=== PATIENT | male | born 1970 | race Caucasian/White ===

== ENCOUNTER 2017-01-08 12:20 | Inpatient (IN) ==
--- NOTE | 2017-01-07 21:18 | Discharge Summary ---
<Veronica Mayorga - Last Filed: 01/07/17 21:14> Date of Encounter: 01/07/17 - Discharge Diagnosis (1) Arthritis of right hip Priority: Primary Status: Acute (2) HTN (hypertension) Priority: Secondary Status: Chronic Qualifiers: Hypertension type: essential hypertension Qualified Code(s): I10 - Essential (primary) hypertension (3) Thyroid disease Priority: Secondary Status: Chronic (4) Tobacco abuse Priority: Secondary Status: Chronic (5) Traumatic brain injury Priority: Secondary Status: Chronic Qualifiers: Encounter type: sequela Loss of consciousness presence/duration: with LOC of unspecified duration Qualified Code(s): S06.9X9S - Unspecified intracranial injury with loss of consciousness of unspecified duration, sequela (6) Depression with anxiety Priority: Secondary Status: Chronic - Discharge Medications Home Medications: Cholecalciferol (Vitamin D3) [Vitamin D3] 50,000 unit PO Q2W 03/04/15 [History] Divalproex Sodium 500 mg PO 0600 03/04/15 [History] Divalproex Sodium [Depakote Sprinkle] 1,000 mg PO 1800 03/04/15 [History] Doxepin [Sinequan] 100 mg PO HS 03/04/15 [History] Haloperidol 2 mg PO DAILY PRN 03/04/15 [History] Trihexyphenidyl HCl 2 mg PO BID 03/04/15 [History] Acetaminophen [Tylenol] 1,000 mg PO Q6HR PRN 06/18/15 [History] Tizanidine HCl [Zanaflex] 4 mg PO BID 11/14/15 [History] ALPRAZolam [Xanax 1 MG Tablet] 1 mg PO BID #2 tablet 01/07/17 [Rx] Aspirin Enteric Coated [Aspirin EC] 325 mg PO DAILY #21 tablet. 01/07/17 [Rx] OxyCODONE Immed Rel [Roxicodone 5 MG] 5 - 10 mg PO Q6HR PRN #40 tablet 01/07/17 [Rx] ALPRAZolam [Xanax 0.5 MG Tablet] 0.5 mg PO BID 01/08/17 [History] Carboxymethylcellulose Sodium [Refresh Tears] 1 - 2 drop BOTH EYES Q4H PRN 01/08 [History] Divalproex Sodium [Depakote Sprinkle] 125 mg PO 1200 01/08/17 [History] Escitalopram [Lexapro] 20 mg PO HS 01/08/17 [History] HYDROcodone/Acet 5/325 mg [[place] 5-325 mg] 1 tab PO BID PRN 01/08/17 [History] Levothyroxine [Synthroid] 75 mcg PO 0630 01/08/17 [History] Loperamide HCl [Anti-Diarrheal] 2 mg PO Q2H PRN 01/08/17 [History] Multivitamin,Stress Formula/Zn [Stress B with Zinc Tablet] 1 each PO DAILY 01/08 [History] Trazodone HCl 25 mg PO HS PRN 01/08/17 [History] hydroCHLOROthiazide [Hydrochlorothiazide] 12.5 mg PO DAILY 01/08/17 [History] Allergies/Adverse Reactions: Allergies quetiapine [From Seroquel] Adverse Reaction (Verified 01/08/17 13:12) Rash PER PATIENT RASH WITH SEROQUEL PER ECF MAR NO KNOWN DRUG ALLERGIES Primary care physician: Kaitlin Pierson - Patient Status Disposition: Transfer Inpatient Rehab Fac Condition: Good - Discharge Instructions Follow Up With: Kaitlin Pierson MD [Primary Care Provider] - - Hospital Course Hospital course: Mr. Garcia is a 46 year old male - Time Spent with Patient Total time spent providing and/or coordinating discharge services: <Jelani Ulloa - Last Filed: 01/10/17 08:32> Date of Encounter: 01/10/17 Time of Encounter: 08:31 - Discharge Diagnosis (1) Arthritis of right hip Priority: Primary Status: Acute (2) HTN (hypertension) Priority: Secondary Status: Chronic Qualifiers: Hypertension type: essential hypertension Qualified Code(s): I10 - Essential (primary) hypertension (3) Thyroid disease Priority: Secondary Status: Chronic (4) Tobacco abuse Priority: Secondary Status: Chronic (5) Traumatic brain injury Priority: Secondary Status: Chronic Qualifiers: Encounter type: sequela Loss of consciousness presence/duration: with LOC of unspecified duration Qualified Code(s): S06.9X9S - Unspecified intracranial injury with loss of consciousness of unspecified duration, sequela (6) Depression with anxiety Priority: Secondary Status: Chronic Primary care physician: Kaitlin Pierson - Patient Status Functional capacity at discharge: uses cane/walker Overall status at discharge: patient is progressing back to baseline - Hospital Course Hospital course: Mr. Garcia is a 46 year old male The patient had an uneventful postoperative course. They received antibiotics and physical therapy and were discharged in stable condition. There will follow -up in the office in 2 weeks. Aspirin DVT prophylaxis - Time Spent with Patient Total time spent providing and/or coordinating discharge services:
--- NOTE | 2017-01-07 21:28 | Physician Discharge Referral ---
ExtendedCare Referral Info Transfer To: [facility] Level of Care: Skilled - Diagnosis (1) Arthritis of right hip Priority: Primary Status: Acute (2) HTN (hypertension) Priority: Secondary Status: Chronic (3) Thyroid disease Priority: Secondary Status: Chronic (4) Tobacco abuse Priority: Secondary Status: Chronic (5) Traumatic brain injury Priority: Secondary Status: Chronic (6) Depression with anxiety Priority: Secondary Status: Chronic Prognosis: Good Aware of Diagnosis: Patient, Family Aware of Prognosis: Patient, Family - Transfer Medications Prescriptions: OxyCODONE Immed Rel [Roxicodone 5 MG] 5 - 10 mg PO Q6HR PRN #40 tablet PRN Reason: Pain ALPRAZolam [Xanax 1 MG Tablet] 1 mg PO BID #2 tablet Aspirin Enteric Coated [Aspirin EC] 325 mg PO DAILY #21 tablet.dr Cadet Medications: Cholecalciferol (Vitamin D3) [Vitamin D3] 50,000 unit PO Q2W 03/04/15 [History] Divalproex Sodium 500 mg PO DAILY 03/04/15 [History] Divalproex Sodium [Depakote Sprinkle] 1,000 mg PO HS 03/04/15 [History] Doxepin [Sinequan] 100 mg PO HS 03/04/15 [History] Haloperidol 2 mg PO DAILY PRN 03/04/15 [History] Ketoconazole 1 applic TP 2XW 03/04/15 [History] Levothyroxine [Synthroid] 75 mcg PO DAILY 03/04/15 [History] Trihexyphenidyl HCl 2 mg PO HS 03/04/15 [History] Acetaminophen [Tylenol] 1,000 mg PO Q6HR PRN 06/18/15 [History] Fluticasone/Salmeterol [Advair 250-50 Diskus] 1 each IH BID 06/18/15 [History] Melatonin [Melatin] 6 mg PO HS 06/18/15 [History] Tizanidine HCl [Zanaflex] 4 mg PO BID 11/14/15 [History] Ibuprofen [Motrin] 400 mg PO Q4HR PRN 11/15/15 [History] ALPRAZolam [Xanax 1 MG Tablet] 1 mg PO BID #2 tablet 01/07/17 [Rx] Aspirin Enteric Coated [Aspirin EC] 325 mg PO DAILY #21 tablet. 01/07/17 [Rx] OxyCODONE Immed Rel [Roxicodone 5 MG] 5 - 10 mg PO Q6HR PRN #40 tablet 01/07/17 [Rx] Allergies/Adverse Reactions: Allergies quetiapine [From Seroquel] Allergy (Verified 09/12/16 10:47) See Comments - Respiratory Orders Smoking Cessation: Smoking cessation has been advised. For more information, call the [employer] Tobacco Quit Line at 9-412-OFSI-NOW. - Ancillary Orders May use pressure relief devices daily prn, May go on KRISS w/family/respon republican w /meds at nurse discretion PRN, May consult with Dentist, Racehorse Trainer, Battery Hand PRN - Mobility Orders Ambulate - Rehabiliation Orders Rehab Potential: Good Rehab Orders: ROM Exercises, Evaluation for Physical Therapy, Evaluation for Occupational Therapy Other: Opsite dressing in place. Keep intact until follow up appointment, only remove if >50% saturated and replace with appropriate dressing. Do not get dressing wet - Diet Orders Regular CERTIFICATION: I certify that the transfer of the above named patient to an Extended Care Facility is necessary for the continuing treatment of the diagnosis listed. The above information is true and accurate reflection of patient's current condition. Confidential - Redisclosure prohibited without a patient's written consent.
--- NOTE | 2017-01-08 12:31 | History & Physical Report ---
Date of Encounter: 01/08/17 Time of Encounter: 12:30 24 Hour HP Update - Instructions Instructions: If the History and Physical is less than 30 days old and was completed prior to A.M. admission and or procedure and has NOT been updated on calendar day of procedure please complete this update prior to performing procedure. - Update Patient reports changes in Medical Condition: No Changes in examination, assessment, or condition: No Changes in Medication: No Preop tests/diagnostics Reviewed: Yes Surgery Remains Indicated: Yes Consent for Planned Operative Procedure(s) Verified: Yes - Pre-Operative Checklist Preoperative Checklist Indicated: No Prophylactic Antibiotic Ordered: Yes Is VTE Prophylaxis Indicated?: Yes
[2017-01-08] MEDS ORDERED: CeFAZolin Pre 2,000 MG/100 ML 2,000 MG/100 ML BAG IVPB ONE (12:50)
[2017-01-08] MEDS ORDERED: Albuterol 2.5 MG/3 ML NEBULIZER IH ONE (12:50)
[2017-01-08] MEDS ORDERED: Lidocaine -MPF 2% 2 ML VIAL ONE (12:52)
[2017-01-08] MEDS ORDERED: *HR* Midazolam HCl 2 MG/2 ML VIAL ONE (12:52)
[2017-01-08] MEDS ORDERED: *HR* Propofol 200 MG/20 ML VIAL IVP ONE (12:52)
[2017-01-08] MEDS ORDERED: *HR* FentaNYL (PF) 100 MCG/2 ML VIAL ONE (12:52)
[2017-01-08] MEDS ORDERED: *HR* Succinylcholine 200 MG/10 ML VIAL IVP ONE (12:52)
[2017-01-08] MEDS ORDERED: Ondansetron 4 MG/2 ML VIAL ONE (12:52)
[2017-01-08] MEDS ORDERED: Ringers Solution, Lactated 1,000 ML IVC SCH ×2 (13:00→18:11)
[2017-01-08] MEDS ORDERED: *HR* HYDROmorphone (PF) 1 MG/ML SYRINGE IVP PRN ×2 (13:04→18:11)
[2017-01-08] MEDS ORDERED: Famotidine 20 MG/2 ML VIAL IVP ONE (13:22)
[2017-01-08] MEDS ORDERED: Gabapentin 300 MG CAPSULE PO ONE (13:22)
--- NOTE | 2017-01-08 13:32 | Anesthesia Evaluation PreOp ---
Date of Encounter: 01/08/17 Time of Encounter: 13:30 - Past History Planned Operation: Rt Total Hip Replacement Cardiac History: HTN, Hyperlipidemia Pulmonary History: Asthma NECKTIE TURNER History: Other (Traumatic Brain Injury) Other Medical History: Thyroid (Hypothyroid) Anesthesia History: No Prior Anesthetic Complications Alcohol Use: none Drug use: none Medications and Allergies Cholecalciferol (Vitamin D3) [Vitamin D3] 50,000 unit PO Q2W 03/04/15 [History] Divalproex Sodium 500 mg PO 0600 03/04/15 [History] Divalproex Sodium [Depakote Sprinkle] 1,000 mg PO 1800 03/04/15 [History] Doxepin [Sinequan] 100 mg PO HS 03/04/15 [History] Haloperidol 2 mg PO DAILY PRN 03/04/15 [History] Trihexyphenidyl HCl 2 mg PO BID 03/04/15 [History] Acetaminophen [Tylenol] 1,000 mg PO Q6HR PRN 06/18/15 [History] Tizanidine HCl [Zanaflex] 4 mg PO BID 11/14/15 [History] ALPRAZolam [Xanax 1 MG Tablet] 1 mg PO BID #2 tablet 01/07/17 [Rx] Aspirin Enteric Coated [Aspirin EC] 325 mg PO DAILY #21 tablet. 01/07/17 [Rx] OxyCODONE Immed Rel [Roxicodone 5 MG] 5 - 10 mg PO Q6HR PRN #40 tablet 01/07/17 [Rx] ALPRAZolam [Xanax 0.5 MG Tablet] 0.5 mg PO BID 01/08/17 [History] Carboxymethylcellulose Sodium [Refresh Tears] 1 - 2 drop BOTH EYES PRN PRN 01/08 [History] Divalproex Sodium [Depakote Sprinkle] 125 mg PO 1200 01/08/17 [History] Escitalopram [Lexapro] 20 mg PO HS 01/08/17 [History] HYDROcodone/Acet 5/325 mg [[place] 5-325 mg] 1 tab PO BID PRN 01/08/17 [History] Levothyroxine [Synthroid] 75 mcg PO 0630 01/08/17 [History] Loperamide HCl [Anti-Diarrheal] 2 mg PO Q2H PRN 01/08/17 [History] Multivitamin,Stress Formula/Zn [Stress B with Zinc Tablet] 1 each PO DAILY 01/08 [History] Trazodone HCl 25 mg PO HS PRN 01/08/17 [History] hydroCHLOROthiazide [Hydrochlorothiazide] 12.5 mg PO DAILY 01/08/17 [History] Allergies quetiapine [From Seroquel] Adverse Reaction (Verified 01/08/17 13:12) Rash PER PATIENT RASH WITH SEROQUEL PER ECF MAR NO KNOWN DRUG ALLERGIES - Meds/Allergy Pre-op Review Medications Reviewed: Yes Allergies Reviewed: Yes Beta Blockers on Current Med List: No Anesthesia Results - Labs Laboratory Tests 01/01/17 01/01/17 10:15 10:15 Hgb 15.4 Hct 46.6 Plt Count 156 Sodium 140 Potassium 3.9 BUN 15 Creatinine 0.86 - Imaging EKG: report reviewed (SR short NH) Anesthesia Exam O2 Sat Height 1.68 m Height 1.68 m Height 1.68 m Weight 102.512 kg Weight 102.512 kg Weight 102.512 kg O2 Sat by Pulse Oximetry 95 O2 Sat by Pulse Oximetry 95 Vital Signs Temp Pulse Resp BP Pulse Ox 97.8 F 70 18 126/92 95 01/08/17 12:52 01/08/17 12:52 01/08/17 12:52 01/08/17 12:52 01/08/17 12:52 Height: 5'6 Weight: 226 lbs NPO (# of Hours): MN Pain Scale: 0 - HEENT Pupil (Motor): Pupils equal, EOMI Mallampati: III Denture Type: Upper: Complete, Lower: Complete Oral Opening: Less than or equal to 3 - NECKTIE TURNER LOC: Oriented NECKTIE TURNER Motor: Normal RUE, Normal LUE, Normal RLE, Normal LLE, Normal Face NECKTIE TURNER Sensory: Normal: RUE, LUE, RLE, LLE, Face - Cardiac Rhythm: Regular Murmur: None JVD: No Carotid Bruit: No - Pulmonary Breath Sounds: bilateral Clear Respiratory Effort: Symmetrical Anesthesia Assess/Plan ASA Score: 3 (HTN, Traumatic Brain Injury, Asthma) Modified Rangel Scale for Level of Consciousness: Cooperative, oriented, and tranquil Anesthetic Plan: General, Regional Monitoring Plan: Standard Monitors Recovery Plan: PACU (Discussed GA and RA, agrees to proceed)
--- NOTE | 2017-01-08 13:52 | Anesthesia Procedures ---
Date of Encounter: 01/08/17 Time of Encounter: 13:47 Procedures: Anesthesia - Nerve Block Procedure Date: 01/08/17 Time: 13:47 Allergies/Adv Reactions: quetiapine Surgical Procedure: right TRISTEN Checklist: Correct Patient Identifier, Correct procedure, History checked Correct side: Right Blood Thinner: No Monitor Applied: EKG, BP, Pulse Oximetry Supplemental Oxygen via Nasal Cannula (L/min): 2 Sedation: Versed (mg): 2 Sedation: Fentanyl (mcg): 100 Indication: Post Op Analgesia Pre-op Neuro Deficits: No Block Type: Other (Fascia Iliaca block) Catheter placed: No Sterile Technique: Yes Ultrasound used: Yes Anatomy identified: Yes Visual spread of Local: Yes Neuro Stimulation: No Blood on Needle Aspiration: No Smooth Injection of Local: Yes Pain with Injection of Local: No Prep: Chlorhexadine Needle: 22 x 50 mm Stimuplex Local: Other (0.25% bupivacaine) Volume (cc): 60 Number of Attempts: 1 Complications: None/effective block Vitals: Vital Signs/O2 Sat/Glucose, Most Recent Temp Pulse Resp BP Pulse Ox 97.8 F 80 16 136/92 98 01/08/17 13:42 01/08/17 13:47 01/08/17 13:47 01/08/17 13:47 01/08/17 13:47
--- NOTE | 2017-01-08 15:25 | Orthopedic Operative Note ---
Date of procedure: 01/08/17 Pre-op diagnosis: Right hip arthritis Post-op diagnosis: same Procedure: Procedure: Right Total Hip Replacment Estimated blood loss: 200 cc Hardware: Metal and polyethylene replacement. Biomet DM Cup: 54 G7 fin cup Femoral size 12 echo full profile lateralized stem Head: +3 head with Marva Procedural Notes: Grade 4 breakdown femoral head and acetabular socket. Operative procedure: The patient was brought to the operating room and placed on the operating room table. After general anesthesia was administered the patient was placed in the lateral decubitus position with the operative leg up. All pressure points were padded appropriately and the head was stabilized in the neutral position. The operative extremity was prepped and draped in the sterile surgical fashion patient received IV antibiotic prior to skin incision. A standard posterior approach is made to the operative hip, the incision was made through the skin and subcutaneous tissue hemostasis was obtained with Bovie cautery. Using careful sharp dissection the fascia was identified and incised exposing the external rotators. The external rotators were released off the greater trochanter and tagged with #2 FiberWire suture. The capsule was T'd open and the hip was brought into internal rotation. Patient noted to have grade 4 arthritic changes femoral head. The femoral neck cut was made at the appropriate level. An anterior capsulotomy was performed for the anterior retractor. Soft tissues removed from the acetabulum. Patient noted to have grade 4 arthritic changes acetabulum. Acetabulum was first reamed medially, and then reamed in 15 degrees of anteversion and 45 degrees off the horizontal. It was reamed up to the appropriate size 54. The appropriate-sized 54 acetabular cup was impacted in place in 15 degrees of anteversion and 45 degrees off the horizontal. This had good fit and fixation. The hip was brought back in to internal rotation and prepared with the box spring maker followed by the canal finder followed by broaching process in 20 degrees anteversion. It was broached up to the appropriate size 12. The femoral implant was impacted in place in 20 degrees of anteversion. Trial reduction found the hip to be stable with +3 head and Marva. The trials were removed and the real implants were impacted in place. The hip was reduced, patient had apparent equal leg lengths. The hip had excellent stability with forward flexion to 90 degrees adduction of 30 degrees and internal rotation of 60 degrees. The hip had no shuck. The hips after 2 minutes with a Betadine saline solution. It was irrigated out with 2 L of pulse irrigation. The external rotators were reattached to drill holes in the greater trochanter. Fascia was closed with a running #2 PDS suture. The deep tissue was irrigated and closed deep with #1 PDS suture superficially with 0 PDS suture and skin was closed with Dermabond and skin donnie. The patient was placed in a sterile dressing and abduction pillow. The patient was extubated and transferred to the recovery room in stable condition. Anesthesia: RHONDA Surgeon: Jelani Ulloa Flight Agent: Jennifer Gill Condition: stable Disposition: PACU
[2017-01-08] MEDS ORDERED: *HR* HYDROmorphone 2 MG/ML SYRINGE ONE (16:10)
[2017-01-08] MEDS: *HR* Labetalol 100 MG/20 ML MDV IVP PRN ×3 (16:30→17:04)
[2017-01-08 17:15] LABS: Hematocrit 38.7 % (37.5-50.1); Hemoglobin 13.5 g/dL (12.9-16.9)
--- NOTE | 2017-01-08 17:28 | Anesthesia Evaluation Post Op ---
Date of Encounter: 01/08/17 Time of Encounter: 17:20 - Vital Signs Vital Signs: Vital Signs - Last 8 Hours Temp Pulse Resp BP Pulse Ox 01/08/17 17:21 69 16 109/80 92 01/08/17 17:11 97.5 F L 68 16 130/97 98 01/08/17 17:01 78 16 132/101 95 01/08/17 16:51 76 16 132/111 95 01/08/17 16:41 98.4 F 70 14 141/114 92 01/08/17 16:31 68 14 146/102 94 01/08/17 16:21 73 16 164/107 94 01/08/17 16:11 78 16 158/112 98 01/08/17 16:01 98.6 F 82 16 145/111 98 01/08/17 14:10 80 16 126/86 99 01/08/17 14:00 80 18 130/92 98 01/08/17 13:47 80 16 136/92 98 01/08/17 13:44 83 16 135/95 98 01/08/17 13:42 97.8 F 70 18 126/92 95 01/08/17 12:58 97.8 F 70 18 126/92 95 01/08/17 12:52 97.8 F 70 18 126/92 95 Intake and Output 01/08/17 01/08/17 01/08/17 07:59 15:59 23:59 Intake Total 100 / 100 Output Total 200 / 200 Balance -100 / -100 Intake: IV Fluids 100 / 100 Ancef Premix 2,000 MG/100 100 / 100 ML 2,000 mg In 100 ml @ 200 mls/hr IVPB PREOP ONE Rx#:[id number] Output: Estimated Blood Loss 200 / 200 Other: Weight 102.512 kg Patient Weight 01/08/17 23:59 Weight 102.512 kg - Lungs Lungs: Clear Ascult./Percussion - Airway Airway: Non-obstructed - Cardiovascular Regular Rate, Baseline Rhythm - Mental Status Mental Status: Alert & Oriented, Answers Appropriately - Pain Pain Scale: 2 (minimal pain -toerable with pain meds ) Pain Scale used: Numeric (1 - 10) - Nausea Vomiting Nausea Vomiting: Not Present - Hydration Hydration: Tolerates oral liquids - Discharge PostOp Status: Transfer Patient to floor
[2017-01-08] MEDS ORDERED: *HR* Enoxaparin 30 MG/0.3 ML SYRINGE SQ SCH (18:00)
[2017-01-08] MEDS ORDERED: Temazepam 15 MG CAPSULE PO PRN (18:11)
[2017-01-08] MEDS ORDERED: Divalproex Sodium 125 MG CAPSULE PO SCH (18:11)
[2017-01-08] MEDS ORDERED: Sennosides 8.6 MG TABLET PO PRN (18:11)
[2017-01-08] MEDS ORDERED: traZODone 50 MG TABLET PO PRN (18:11)
[2017-01-08] MEDS ORDERED: Ondansetron 4 MG/2 ML VIAL IVP PRN (18:11)
[2017-01-08] MEDS ORDERED: Naloxone 0.4 MG/ML INJ IVP PRN (18:11)
[2017-01-08] MEDS ORDERED: *HR* OxyCODONE Immed Rel 5 MG TABLET PO PRN (18:11)
[2017-01-08] MEDS ORDERED: MOM Conc 10 ML UD.LIQ PO PRN (18:11)
[2017-01-08] MEDS: Ascorbic Acid 500 MG TABLET PO SCH (19:01)
[2017-01-08] MEDS: Cholecalciferol (D-3) 1,000 UNIT TABLET PO SCH (19:01)
[2017-01-08] MEDS: *HR* OxyCODONE Immed Rel 5 MG TABLET PO PRN (19:01)
[2017-01-08] MEDS: ceFAZolin 2,000 MG in D5% in Water 100 ML IVPB SCH (21:22)
[2017-01-08] MEDS: ALPRAZolam 0.5 MG TABLET PO SCH (21:23)
[2017-01-08] MEDS: tiZANidine 4 MG TABLET PO SCH (21:23)
[2017-01-09] MEDS: *HR* OxyCODONE Immed Rel 5 MG TABLET PO PRN ×5 (01:04→20:27)
[2017-01-09] MEDS: ceFAZolin 2,000 MG in D5% in Water 100 ML IVPB SCH (04:03)
[2017-01-09] MEDS: *HR* Enoxaparin 30 MG/0.3 ML SYRINGE SQ SCH (04:58)
[2017-01-09 05:50] LABS: Hematocrit 36.3 % (37.5-50.1); Hemoglobin 12.3 g/dL (12.9-16.9)
[2017-01-09 06:04] LABS: BUN/Creatinine Ratio 13 (6-26); Blood Urea Nitrogen 11 mg/dL (8-26); Calcium 8.6 mg/dL (8.6-10.8); Carbon Dioxide 29 mEq/L (19-29); Chloride 98 mEq/L (98-109); Glucose 122 mg/dL (70-99); Osmolality,Calculated 281 (280-300); Sodium 135 mEq/L (136-145); eGFR For African Americans > 60 (> 60); eGFR For Non-African Americans > 60 (> 60)
--- NOTE | 2017-01-09 06:44 | Orthopedics Progress Note ---
Date of Encounter: 01/09/17 Time of Encounter: 06:44 - Assessment and Plan (1) Arthritis of right hip Current Visit: Yes Status: Acute (2) HTN (hypertension) Current Visit: Yes Status: Chronic Qualifiers: Hypertension type: essential hypertension Qualified Code(s): I10 - Essential (primary) hypertension (3) Thyroid disease Current Visit: Yes Status: Chronic (4) Tobacco abuse Current Visit: Yes Status: Chronic (5) Traumatic brain injury Current Visit: Yes Status: Chronic Qualifiers: Encounter type: sequela Loss of consciousness presence/duration: with LOC of unspecified duration Qualified Code(s): S06.9X9S - Unspecified intracranial injury with loss of consciousness of unspecified duration, sequela (6) Depression with anxiety Current Visit: Yes Status: Chronic Subjective Interval history: Patient was seen this morning doing well without complaints. Afebrile vital signs stable. Operative extremity: Neurovascularly intact Dressing clean dry and intact Calves nontender Assessment and plan: Continue with postoperative care Hematocrit 36 Objective Vital signs: Vital Signs Temp Pulse Resp BP Pulse Ox 01/09/17 04:21 98.7 F 88 19 94/69 96 01/08/17 23:19 98.1 F 96 19 101/70 97 01/08/17 20:15 98.2 F 97 18 116/83 96 01/08/17 19:31 77 14 112/82 96 01/08/17 18:55 97.7 F 78 14 138/90 97 01/08/17 18:12 97.5 F L 74 18 114/80 97 01/08/17 17:51 68 18 123/93 97 01/08/17 17:41 97.6 F 66 16 127/93 97 01/08/17 17:31 63 16 105/90 97 01/08/17 17:21 69 16 109/80 92 01/08/17 17:11 97.5 F L 68 16 130/97 98 01/08/17 17:01 78 16 132/101 95 01/08/17 16:51 76 16 132/111 95 01/08/17 16:41 98.4 F 70 14 141/114 92 01/08/17 16:31 68 14 146/102 94 01/08/17 16:21 73 16 164/107 94 01/08/17 16:11 78 16 158/112 98 01/08/17 16:01 98.6 F 82 16 145/111 98 01/08/17 14:10 80 16 126/86 99 01/08/17 14:00 80 18 130/92 98 01/08/17 13:47 80 16 136/92 98 01/08/17 13:44 83 16 135/95 98 01/08/17 13:42 97.8 F 70 18 126/92 95 01/08/17 12:58 97.8 F 70 18 126/92 95 01/08/17 12:52 97.8 F 70 18 126/92 95 Intake and Output 01/08/17 01/08/17 01/09/17 15:59 23:59 07:59 Intake Total 100 / 100 100 / 100 Output Total 200 / 200 Balance -100 / -100 100 / 100 Intake: IV Fluids 100 / 100 100 / 100 Ancef Premix 2,000 MG/100 100 / 100 ML 2,000 mg In 100 ml @ 200 mls/hr IVPB PREOP ONE Rx#:[id number] Ancef 2,000 MG In 100 / 100 Dextrose 5% 100 ML @ 200 mls/hr IVPB Q8HR MARKOS Rx#: [id number] Output: Estimated Blood Loss 200 / 200 Other: Weight 102.512 kg - Labs CBC & BMP: 01/09/17 05:09 01/09/17 05:09 Labs: Abnormal lab results Hgb 12.3 g/dL (12.9-16.9) L 01/09/17 05:09 Hct 36.3 % (37.5-50.1) L 01/09/17 05:09 Sodium 135 mEq/L (136-145) L 01/09/17 05:09 Glucose 122 mg/dL (70-99) H 01/09/17 05:09 - VTE Documentation of Mechanical Device: Venous foot pump, device Consult Discharge Plan - Plan Referrals: Kaitlin Pierson MD [Primary Care Provider] -
[2017-01-09] MEDS ORDERED: [UNRECOGNIZED DRUG - MIXTURE] PO SCH (09:00)
[2017-01-09] MEDS ORDERED: CARBOXYMETHYLCELLULOSE SODIUM OP PRN (09:00)
[2017-01-09] MEDS: Divalproex Sodium 125 MG CAPSULE PO SCH (10:23)
[2017-01-09] MEDS: Ascorbic Acid 500 MG TABLET PO SCH ×2 (10:26→15:24)
[2017-01-09] MEDS: hydroCHLOROthiazide 25 MG TABLET PO SCH (10:26)
[2017-01-09] MEDS: Cholecalciferol (D-3) 1,000 UNIT TABLET PO SCH (10:27)
[2017-01-09] MEDS: Multivit/Ca/Min/Fe/FA 1 TAB TABLET PO SCH (10:27)
[2017-01-09] MEDS: ALPRAZolam 0.5 MG TABLET PO SCH ×2 (10:27→20:27)
[2017-01-09] MEDS: tiZANidine 4 MG TABLET PO SCH ×2 (10:28→20:27)
[2017-01-09] MEDS ORDERED: Divalproex Sodium 125 MG CAPSULE PO SCH (12:00)
[2017-01-10] MEDS: *HR* OxyCODONE Immed Rel 5 MG TABLET PO PRN ×2 (02:25→10:41)
[2017-01-10 04:56] LABS: Hematocrit 37.6 % (37.5-50.1); Hemoglobin 12.6 g/dL (12.9-16.9)
[2017-01-10 05:13] LABS: BUN/Creatinine Ratio 6 (6-26); Calcium 8.7 mg/dL (8.6-10.8); Carbon Dioxide 29 mEq/L (19-29); Chloride 92 mEq/L (98-109); Glucose 175 mg/dL (70-99); Osmolality,Calculated 274 (280-300); Potassium 3.8 mEq/L (3.5-4.5); Sodium 131 mEq/L (136-145); eGFR For African Americans > 60 (> 60); eGFR For Non-African Americans > 60 (> 60)
[2017-01-10 05:16] LABS: Blood Urea Nitrogen 5 mg/dL (8-26)
[2017-01-10] MEDS: Divalproex Sodium 125 MG CAPSULE PO SCH (05:33)
[2017-01-10] MEDS: *HR* Enoxaparin 30 MG/0.3 ML SYRINGE SQ SCH (05:35)
[2017-01-10] MEDS: hydroCHLOROthiazide 25 MG TABLET PO SCH (08:15)
[2017-01-10] MEDS: ALPRAZolam 0.5 MG TABLET PO SCH (08:15)
[2017-01-10] MEDS: Cholecalciferol (D-3) 1,000 UNIT TABLET PO SCH (08:15)
[2017-01-10] MEDS: tiZANidine 4 MG TABLET PO SCH (08:16)
[2017-01-10] MEDS: Ascorbic Acid 500 MG TABLET PO SCH (08:16)
[2017-01-10] MEDS: Multivit/Ca/Min/Fe/FA 1 TAB TABLET PO SCH (08:16)
--- NOTE | 2017-01-10 08:33 | Orthopedics Progress Note ---
Date of Encounter: 01/10/17 Time of Encounter: 08:32 - Assessment and Plan (1) Arthritis of right hip Current Visit: Yes Status: Acute (2) HTN (hypertension) Current Visit: Yes Status: Chronic Qualifiers: Hypertension type: essential hypertension Qualified Code(s): I10 - Essential (primary) hypertension (3) Thyroid disease Current Visit: Yes Status: Chronic (4) Tobacco abuse Current Visit: Yes Status: Chronic (5) Traumatic brain injury Current Visit: Yes Status: Chronic Qualifiers: Encounter type: sequela Loss of consciousness presence/duration: with LOC of unspecified duration Qualified Code(s): S06.9X9S - Unspecified intracranial injury with loss of consciousness of unspecified duration, sequela (6) Depression with anxiety Current Visit: Yes Status: Chronic Subjective Interval history: Patient was seen this morning doing well without complaints. Afebrile vital signs stable. Operative extremity: Neurovascularly intact Dressing clean dry and intact Calves nontender Assessment and plan: Continue with postoperative care Discharge today Objective Vital signs: Vital Signs Temp Pulse Resp BP Pulse Ox 01/10/17 07:28 99.0 F 101 16 126/79 01/09/17 22:32 100.6 F H 106 15 119/81 92 01/09/17 19:21 98.6 F 96 19 121/86 94 01/09/17 15:18 98.7 F 99 17 111/79 97 01/09/17 11:03 98.7 F 106 18 108/74 96 01/09/17 08:53 88 16 110/75 98 Intake and Output 01/09/17 01/10/17 01/10/17 23:59 07:59 15:59 Output Total 300 / 300 775 / 775 Balance -300 / -300 -775 / -775 Output: Urine 300 / 300 Straight Cath 775 / 775 - Labs CBC & BMP: 01/10/17 04:27 01/10/17 04:27 Labs: Abnormal lab results Hgb 12.6 g/dL (12.9-16.9) L 01/10/17 04:27 Sodium 131 mEq/L (136-145) L 01/10/17 04:27 Chloride 92 mEq/L (98-109) L 01/10/17 04:27 BUN 5 mg/dL (8-26) L 01/10/17 04:27 Glucose 175 mg/dL (70-99) H 01/10/17 04:27 Calculated Osmolality 274 (280-300) L 01/10/17 04:27 - VTE Documentation of Mechanical Device: Venous foot pump, device Consult Discharge Plan - Plan Referrals: Kaitlin Pierson MD [Primary Care Provider] -
[2017-01-10 10:59] VITALS: BP 116/58
[2017-01-10] MEDS ORDERED: Artificial Tears SOLN 15 ML BOTTLE OP PRN (12:59)
== END 2017-01-10 14:20 | DRG 301 ==
LOC: SAMDAY 12:20 → 3NENU 18:00
PROVIDERS: ADMIT Orthopaedic Surgery; ATTEND Orthopaedic Surgery

== ENCOUNTER 2017-09-03 09:45 | Inpatient (IN) ==
--- NOTE | 2017-09-02 22:07 | Discharge Summary ---
<Jennifer Gill E - Last Filed: 09/02/17 22:05> Date of Encounter: 09/02/17 - Discharge Diagnosis (1) Osteoarthritis of left hip Priority: Primary Status: Chronic Qualifiers: Osteoarthritis type: unspecified Qualified Code(s): M16.12 - Unilateral primary osteoarthritis, left hip (2) History of traumatic brain injury Priority: Secondary Status: Chronic (3) Difficulty walking Priority: Secondary Status: Chronic (4) Anxiety Priority: Secondary Status: Chronic (5) Chronic hepatitis C Priority: Secondary Status: Chronic Qualifiers: Hepatic coma status: without hepatic coma Qualified Code(s): B18.2 - Chronic viral hepatitis C (6) JANAY (obstructive sleep apnea) Priority: Secondary Status: Chronic (7) Asthma Priority: Secondary Status: Chronic Qualifiers: Asthma severity: unspecified severity Asthma persistence: unspecified Asthma complication type: unspecified Qualified Code(s): J45.909 - Unspecified asthma, uncomplicated (8) Tobacco dependence Priority: Secondary Status: Chronic (9) Hypothyroidism Priority: Secondary Status: Chronic Qualifiers: Hypothyroidism type: unspecified Qualified Code(s): E03.9 - Hypothyroidism , unspecified (10) Status post total hip replacement, left Priority: Primary Status: Acute - Discharge Medications Home Medications: Aspirin Enteric Coated [Aspirin EC] 325 mg PO DAILY 21 Days #21 tablet. [Rx] OxyCODONE Immed Rel [Roxicodone 5 MG] 5 mg PO Q6HR PRN 7 Days #28 tablet [Rx] ALPRAZolam [Xanax 0.25 MG Tablet] 0.25 mg PO BID 09/03/17 [History] Carboxymethylcellulose Sodium [Refresh Tears] 1 - 2 drop BOTH EYES DAILY PRN 07/09 [History] Cholecalciferol (Vitamin D3) [Vitamin D3] 50,000 unit PO Q14D 09/03/17 [History] Divalproex Sodium [Depakote Sprinkle] 250 mg PO 1200 09/03/17 [History] Divalproex Sodium [Depakote Sprinkle] 500 mg PO 0600 09/03/17 [History] Doxepin HCl 100 mg PO HS 09/03/17 [History] Escitalopram [Lexapro] 20 mg PO DAILY 09/03/17 [History] Gabapentin [Neurontin] 200 mg PO TID 09/03/17 [History] HYDROcodone/Acet 5/325 mg [[place] 5-325 mg] 1 tab PO BID PRN 09/03/17 [History] Haloperidol [Haldol] 1 mg PO BID 09/03/17 [History] Iron Polysaccharide Complex [Ferrex 150] 150 mg PO DAILY 09/03/17 [History] Levothyroxine [Synthroid] 75 mcg PO 0630 09/03/17 [History] MOM Conc [MILK OF MAGNESIA conc] 30 ml PO DAILY PRN 09/03/17 [History] Meloxicam [Mobic] 7.5 mg PO DAILY 09/03/17 [History] Multivitamin,Stress Formula/Zn [Stress B with Zinc Tablet] 1 tab PO DAILY [History] Tizanidine HCl 4 mg PO QID PRN 09/03/17 [History] Trihexyphenidyl [Artane] 2 mg PO BID 09/03/17 [History] hydroCHLOROthiazide [Hydrochlorothiazide] 12.5 mg PO DAILY 09/03/17 [History] Allergies/Adverse Reactions: 3 Allergy/AdvReac Type Severity Reaction Status Date / Time quetiapine [From Seroquel] AdvReac Rash Verified 09/03/17 10:37 Primary care physician: Kaitlin Pierson - Patient Status Disposition: Transfer Inpatient Rehab Fac Condition: Good - Discharge Instructions Follow Up With: Kaitlin Pierson MD [Primary Care Provider] - - Hospital Course Hospital course: Mr. Garcia is a 46 year old male - Time Spent with Patient Total time spent providing and/or coordinating discharge services: <Jelani Ulloa - Last Filed: 09/05/17 06:03> Date of Encounter: 09/05/17 Time of Encounter: 06:00 - Discharge Diagnosis (1) Arthritis of left hip Priority: Primary Status: Acute (2) Status post total hip replacement, right Priority: Secondary Status: Chronic (3) HTN (hypertension) Priority: Primary Status: Chronic Qualifiers: Hypertension type: essential hypertension Qualified Code(s): I10 - Essential (primary) hypertension (4) Thyroid disease Priority: Secondary Status: Chronic (5) Tobacco abuse Priority: Secondary Status: Chronic (6) Traumatic brain injury Priority: Secondary Status: Chronic Qualifiers: Encounter type: sequela Loss of consciousness presence/duration: with LOC of unspecified duration Qualified Code(s): S06.9X9S - Unspecified intracranial injury with loss of consciousness of unspecified duration, sequela (7) Depression with anxiety Priority: Secondary Status: Chronic (8) Chronic hepatitis C Priority: Secondary Status: Chronic Qualifiers: Hepatic coma status: without hepatic coma Qualified Code(s): B18.2 - Chronic viral hepatitis C (9) JANAY (obstructive sleep apnea) Priority: Secondary Status: Chronic (10) Asthma Priority: Secondary Status: Chronic Qualifiers: Asthma severity: unspecified severity Asthma persistence: unspecified Asthma complication type: unspecified Qualified Code(s): J45.909 - Unspecified asthma, uncomplicated (11) Tobacco dependence Priority: Secondary Status: Chronic (12) Hypothyroidism Priority: Secondary Status: Chronic Qualifiers: Hypothyroidism type: unspecified Qualified Code(s): E03.9 - Hypothyroidism , unspecified (13) Status post total hip replacement, left Priority: Primary Status: Acute (14) Shortness of breath Priority: Secondary Status: Acute (15) Pneumonia Priority: Primary Status: Chronic Qualifiers: Pneumonia type: due to unspecified organism Laterality: bilateral Lung location: unspecified part of lung Qualified Code(s): J18.9 - Pneumonia, unspecified organism (16) Postoperative urinary retention Priority: Primary Status: Acute Primary care physician: Kaitlin Pierson - Patient Status Functional capacity at discharge: uses cane/walker Overall status at discharge: patient is progressing back to baseline - Hospital Course Hospital course: Mr. Garcia is a 46 year old male Patient's status post right total hip replacement. Patient with shortness of breath postoperative required rapid response. Cultures negative for flu. Diagnosis of possible pneumonia. Patient doing better with postop urinary retention requiring Elizabeth. Patient received antibiotics physical therapy discharge stable condition back to facility - Time Spent with Patient Total time spent providing and/or coordinating discharge services:
--- NOTE | 2017-09-02 22:10 | Physician Discharge Referral ---
ExtendedCare Referral Info Transfer To: [facility] Provider in Charge: Dr Ulloa - Diagnosis (1) Osteoarthritis of left hip Priority: Primary Status: Chronic (2) History of traumatic brain injury Priority: Secondary Status: Chronic (3) Difficulty walking Priority: Secondary Status: Chronic (4) Anxiety Priority: Secondary Status: Chronic (5) Chronic hepatitis C Priority: Secondary Status: Chronic (6) JANAY (obstructive sleep apnea) Priority: Secondary Status: Chronic (7) Asthma Priority: Secondary Status: Chronic (8) Tobacco dependence Priority: Secondary Status: Chronic (9) Hypothyroidism Priority: Secondary Status: Chronic (10) Status post total hip replacement, left Priority: Primary Status: Acute Expected Duration of Placement: less than 30 days Prognosis: Good Aware of Diagnosis: Patient Aware of Prognosis: Patient - Transfer Medications Prescriptions: OxyCODONE Immed Rel [Roxicodone 5 MG] 5 mg PO Q6HR PRN 7 Days #28 tablet PRN Reason: Severe Pain Aspirin Enteric Coated [Aspirin EC] 325 mg PO DAILY 21 Days #21 tablet.dr Cadet Medications: Cholecalciferol (Vitamin D3) [Vitamin D3] 50,000 unit PO Q2W 03/04/15 [History] Doxepin [Sinequan] 100 mg PO HS 03/04/15 [History] Haloperidol 2 mg PO DAILY PRN 03/04/15 [History] Trihexyphenidyl HCl 2 mg PO BID 03/04/15 [History] Acetaminophen [Tylenol] 650 mg PO Q6HR PRN 06/18/15 [History] Tizanidine HCl [Zanaflex] 4 mg PO BID 11/14/15 [History] Carboxymethylcellulose Sodium [Refresh Tears] 1 - 2 drop BOTH EYES Q4H PRN 01/08 [History] Divalproex Sodium [Depakote Sprinkle] 500 mg PO DAILY 01/08/17 [History] Escitalopram [Lexapro] 20 mg PO HS 01/08/17 [History] Levothyroxine [Synthroid] 75 mcg PO 0630 01/08/17 [History] Multivitamin,Stress Formula/Zn [Stress B with Zinc Tablet] 1 each PO DAILY 01/08 [History] Trazodone HCl 25 mg PO HS PRN 01/08/17 [History] hydroCHLOROthiazide [Hydrochlorothiazide] 12.5 mg PO DAILY 01/08/17 [History] ALPRAZolam [Xanax 1 MG Tablet] 1 mg PO BID PRN 05/04/17 [History] Gabapentin [Neurontin] 100 mg PO TID 05/04/17 [History] HYDROcodone/Acet 5/325 mg [[place] 5-325 mg] 1 tab PO BID PRN 05/04/17 [History] Ibuprofen [Motrin] 400 mg PO BID PRN 05/04/17 [History] Iron Ps Cmplx/Vit B12/FA [Ferrex 150 Forte Capsule] 1 each PO DAILY 05/04/17 [ History] Aspirin Enteric Coated [Aspirin EC] 325 mg PO DAILY 21 Days #21 tablet. [Rx] OxyCODONE Immed Rel [Roxicodone 5 MG] 5 mg PO Q6HR PRN 7 Days #28 tablet [Rx] Allergies/Adverse Reactions: 3 Allergy/AdvReac Type Severity Reaction Status Date / Time quetiapine [From Seroquel] AdvReac Rash Verified 08/27/17 11:41 - Respiratory Orders Smoking Cessation: Smoking cessation has been advised. For more information, call the [place] Tobacco Quit Line at 1-418-XNJH-NOW. - Ancillary Orders May use pressure relief devices daily prn, May go on KRISS w/family/respon republican w /meds at nurse discretion PRN, May consult with Dentist, Team Leader/Research Psychologist, Farm Products Shipper PRN - Mobility Orders Chair, Ambulate - Rehabiliation Orders Rehab Potential: Good Rehab Orders: Evaluation for Physical Therapy, Evaluation for Occupational Therapy Other: Total Hip replacement Precautions Apply cold therapy 3-6x/day for 20 minutes at a time. Encourage ambulation throughout the day and incentive spirometer 10x/hour. Elevate affected extremity as tolerated. Brace: Wear hip abduction pillow when laying/sleeping - Treatments Skin tear care topically daily PRN per policy List/Other: Opsite placed. Keep dressing intact until first follow up appointment. If > 50% saturated, notify office, remove dressing and place appropriate dressing back in place. Leave Zipline intact. Opsite dressing is water resistant, not water- proof. OK to shower, but do not get dressing wet. - Diet Orders Regular CERTIFICATION: I certify that the transfer of the above named patient to an Extended Care Facility is necessary for the continuing treatment of the diagnosis listed. The above information is true and accurate reflection of patient's current condition. Confidential - Redisclosure prohibited without a patient's written consent.
--- NOTE | 2017-09-03 10:19 | History & Physical Report ---
Date of Encounter: 09/03/17 Time of Encounter: 10:19 24 Hour HP Update - Instructions Instructions: If the History and Physical is less than 30 days old and was completed prior to A.M. admission and or procedure and has NOT been updated on calendar day of procedure please complete this update prior to performing procedure. - Update Patient reports changes in Medical Condition: No Changes in examination, assessment, or condition: No Changes in Medication: No Preop tests/diagnostics Reviewed: Yes Surgery Remains Indicated: Yes Consent for Planned Operative Procedure(s) Verified: Yes - Pre-Operative Checklist Preoperative Checklist Indicated: No Prophylactic Antibiotic Ordered: Yes Is VTE Prophylaxis Indicated?: Yes
[2017-09-03] MEDS ORDERED: CeFAZolin Syr 2,000MG/20 ML 2,000 MG/20 ML SYRINGE IVPB ONE (10:22)
[2017-09-03] MEDS ORDERED: Albuterol 2.5 MG/3 ML NEBULIZER IH ONE (10:22)
[2017-09-03] MEDS ORDERED: Acetaminophen IV 1,000 MG/100 ML INFUS..BTL IVPB ONE (10:23)
--- NOTE | 2017-09-03 10:25 | Anesthesia Evaluation PreOp ---
Date of Encounter: 09/03/17 Time of Encounter: 10:23 - Past History Planned Operation: Left robotic total hip arthroplasty Cardiac History: HTN, Hyperlipidemia Pulmonary History: Smoker (did not smoke today), JANAY Dx FOOD EXPEDITOR History: Other (traumatic brain injury, anxiety) Other Medical History: Hepatic (hep c), Thyroid (hypothyroid) Anesthesia History: No Prior Anesthetic Complications, Past Anesthesia (R THR, L shoulder x 3, right shoulder, L ear, sinus sx) Alcohol Use: none Drug use: none Medications and Allergies Cholecalciferol (Vitamin D3) [Vitamin D3] 50,000 unit PO Q2W 03/04/15 [History] Doxepin [Sinequan] 100 mg PO HS 03/04/15 [History] Haloperidol 2 mg PO DAILY PRN 03/04/15 [History] Trihexyphenidyl HCl 2 mg PO BID 03/04/15 [History] Acetaminophen [Tylenol] 650 mg PO Q6HR PRN 06/18/15 [History] Tizanidine HCl [Zanaflex] 4 mg PO BID 11/14/15 [History] Carboxymethylcellulose Sodium [Refresh Tears] 1 - 2 drop BOTH EYES Q4H PRN 01/08 [History] Divalproex Sodium [Depakote Sprinkle] 500 mg PO DAILY 01/08/17 [History] Escitalopram [Lexapro] 20 mg PO HS 01/08/17 [History] Levothyroxine [Synthroid] 75 mcg PO 0630 01/08/17 [History] Multivitamin,Stress Formula/Zn [Stress B with Zinc Tablet] 1 each PO DAILY 01/08 [History] Trazodone HCl 25 mg PO HS PRN 01/08/17 [History] hydroCHLOROthiazide [Hydrochlorothiazide] 12.5 mg PO DAILY 01/08/17 [History] ALPRAZolam [Xanax 1 MG Tablet] 1 mg PO BID PRN 05/04/17 [History] Gabapentin [Neurontin] 100 mg PO TID 05/04/17 [History] HYDROcodone/Acet 5/325 mg [[place] 5-325 mg] 1 tab PO BID PRN 05/04/17 [History] Ibuprofen [Motrin] 400 mg PO BID PRN 05/04/17 [History] Iron Ps Cmplx/Vit B12/FA [Ferrex 150 Forte Capsule] 1 each PO DAILY 05/04/17 [ History] Aspirin Enteric Coated [Aspirin EC] 325 mg PO DAILY 21 Days #21 tablet. [Rx] OxyCODONE Immed Rel [Roxicodone 5 MG] 5 mg PO Q6HR PRN 7 Days #28 tablet [Rx] 3 Allergy/AdvReac Type Severity Reaction Status Date / Time quetiapine [From Seroquel] AdvReac Rash Verified 08/27/17 11:41 - Meds/Allergy Pre-op Review Medications Reviewed: Yes Allergies Reviewed: Yes Beta Blockers on Current Med List: No Anesthesia Results - Labs Laboratory Tests 08/27/17 08/27/17 08/27/17 12:06 12:06 12:06 WBC 5.5 Hgb 16.1 Hct 48.1 Plt Count 143 PT 10.8 INR 1.0 APTT 31.3 Sodium 138 Potassium 3.8 Chloride 99 Carbon Dioxide 35 H BUN 12 Creatinine 0.65 L - Imaging EKG: report reviewed (SR with shortened NC interval) Anesthesia Exam O2 Sat Height 1.68 m Height 1.68 m Weight 103.419 kg Weight 103.419 kg O2 Sat by Pulse Oximetry 96 Vital Signs Temp Pulse Resp BP Pulse Ox 97.8 F 96 18 138/102 96 09/03/17 10:06 09/03/17 10:06 09/03/17 10:06 09/03/17 10:06 09/03/17 10:06 Height: 1.68m Weight: 103kg NPO (# of Hours): >8 - HEENT Pupil (Motor): Pupils equal, EOMI Mallampati: III Teeth: Edentulous Oral Opening: Greater than 3 - FOOD EXPEDITOR FOOD EXPEDITOR Motor: Normal RUE, Normal LUE, Normal RLE, Normal LLE, Normal Face FOOD EXPEDITOR Sensory: Normal: RUE, LUE, RLE, LLE, Face - Cardiac Rhythm: Regular - Pulmonary Breath Sounds: bilateral Clear Respiratory Effort: Symmetrical Anesthesia Assess/Plan ASA Score: 3 (HTN, hyperlipidemia, Hep C, smoker, anxiety, traumatic brain injury) Modified Mills Scale for Level of Consciousness: Cooperative, oriented, and tranquil Anesthetic Plan: General (r/b/a discussed, questions answered, consent obtained) , Regional (spinal) Monitoring Plan: Standard Monitors Recovery Plan: PACU
[2017-09-03] MEDS ORDERED: Ringers Solution, Lactated 1,000 ML IVC SCH ×2 (10:30→14:51)
[2017-09-03] MEDS ORDERED: Dexamethasone 4 MG/ML VIAL ONE (11:14)
[2017-09-03] MEDS ORDERED: Ondansetron 4 MG/2 ML VIAL ONE ×2 (11:14→12:29)
[2017-09-03] MEDS ORDERED: *HR* Midazolam HCl 2 MG/2 ML VIAL ONE (11:14)
[2017-09-03] MEDS ORDERED: Lidocaine -MPF 2% 2 ML VIAL ONE (11:14)
[2017-09-03] MEDS ORDERED: Propofol 500 MG/50 ML INFUS..BTL ONE (11:14)
[2017-09-03] MEDS ORDERED: Ethanol\\Acetic Acid\\Na Ace\\Ben 1,000 ML IRRIG.SOLN IR ONE (11:44)
--- NOTE | 2017-09-03 12:21 | Anesthesia Procedures ---
Date of Encounter: 09/03/17 Time of Encounter: 12:25 Procedures: Anesthesia - Epidural/Spinal Patient ID/Chart reviewed: Yes Patient examined: Yes Consent Obtained: Yes Supplemental Oxygen: Nasal Cannula Supplemental Oxygen Rate (L/min): 2 Sedation: Versed (mg): 2 Site Prep: Aseptic Technique, Sterile prep and drape, Povidone-Iodine 1% Patient position: upright Local Anesthetic: Lidocaine 1% (3ml) Interspace Used: L3-L4 CSF: Yes Paresthesia: No Spinal Needle Gauge: 25 Spinal Dose: 3ml 0.75%bupi +0.25mg duramorph Procedure: r/b/a discussed, pt upright, low back prepped and draped in sterile fashion. 3ml 1% lido at approx L3-4, 20g introducer, 25g spinal needle inserted CSF clear , injected 3ml 0.5 bupi = 0.25mg duramorph intrathecally, pt tolerated procedure.
[2017-09-03] MEDS ORDERED: *HR* PHENYLEPHRINE 1,000 MCG/10 ML SYRINGE IVP ONE ×3 (12:50→13:17)
[2017-09-03] MEDS ORDERED: *HR* Promethazine 25 MG/ML VIAL IVP PRN (13:10)
[2017-09-03] MEDS ORDERED: *HR* Propofol 200 MG/20 ML VIAL IVP ONE (13:15)
--- NOTE | 2017-09-03 13:24 | Orthopedic Operative Note ---
Date of procedure: 09/03/17 Pre-op diagnosis: Left hip arthritis Post-op diagnosis: same Procedure: Procedure: Left Total Hip Replacment robotic-assisted Estimated blood loss: 200 cc Hardware: Metal and polyethylene replacement. Shani DM Cup: 56 cup Femoral size 8 stem Head: 0 head with Marva Procedural Notes: Patient noted to have a leg length shorter on the left of 11 mm compared to the right as measured by CT scan. Grade 4 arthritic changes femoral head acetabular socket, procedure performed with robotic assistance. Operative procedure: The patient was brought to the operating room and placed on the operating room table. After general anesthesia was administered the patient was placed in the lateral decubitus position with the operative leg up. All pressure points were padded appropriately and the head was stabilized in the neutral position. The operative extremity was prepped and draped in the sterile surgical fashion patient received IV antibiotic prior to skin incision. 3 Steinmann pins were placed in the iliac crest 3 cm proximal to the anterior superior iliac spine this was for the robotic-assisted sensor. This was done through a small 2 cm incision. A standard posterior approach is made to the operative hip, the incision was made through the skin and subcutaneous tissue hemostasis was obtained with Bovie cautery. Using careful sharp dissection the fascia was identified and incised exposing the external rotators. The femoral checkpoint was placed leg length was measured at this time utilizing robotic assistance. The external rotators were released off the greater trochanter and tagged with # 2 FiberWire suture. The capsule was T'd open and the hip was brought into internal rotation. Patient noted to have grade 4 arthritic changes femoral head. The femoral neck cut was made at the appropriate level roughly 17 mm proximal to the lesser trochanter aced on preoperative templating. An anterior capsulotomy was performed for the anterior retractor. Soft tissues removed from the acetabulum. Patient noted to have grade 4 arthritic changes acetabulum. The acetabulum checkpoint was placed confirmed. The acetabulum was then mapped with robotic assistance. Based on the preoperative plan the acetabulum was reamed in one step with a 55 reamer. The 56 acetabulum was impacted with robotic assistance and 40 degrees of abduction and 11 degrees of anteversion. The hip was brought back in to internal rotation and prepared with the box closing machine operator followed by the canal finder followed by the reaming process to a size 7/ 8 broaching process in 20 degrees anteversion. It was broached up to the appropriate size 8. Trial reduction revealed leg lengths close to normal. The femoral implant was impacted in place in 20 degrees of anteversion. Trial reduction found the hip to be stable with 0 head and Marva. The trials were removed and the real implants were impacted in place. The hip was reduced, patient had robotic confirmed leg length of 0 mm longer than the contralateral side. The hip had excellent stability with forward flexion to 90 degrees adduction of 30 degrees and internal rotation of 60 degrees. The hip had no shuck. The hips after 2 minutes with a Betadine saline solution. It was irrigated out with 2 L of pulse irrigation. The checkpoints were removed, Steinmann pins were removed. The hip was closed by the PA. The deep tissue was irrigated and closed deep with #1 PDS suture superficially with 0 PDS suture and skin was closed with Dermabond and zip tie. The patient was placed in a sterile dressing and abduction pillow. The patient was extubated and transferred to the recovery room in stable condition. Anesthesia: spinal Surgeon: Jelani Ulloa Was there an first assistant present: No Estimated blood loss (cc): 200 Condition: stable Disposition: PACU
--- NOTE | 2017-09-03 14:23 | Anesthesia Evaluation Post Op ---
Date of Encounter: 09/03/17 Time of Encounter: 14:20 - Vital Signs Vital Signs: Selected Entries 09/03/17 13:51 09/03/17 14:11 Temperature 98.3 F Pulse Rate 97 Respiratory Rate 14 Blood Pressure 108/83 O2 Sat by Pulse Oximetry 98 - Lungs Lungs: Clear Ascult./Percussion - Airway Airway: Non-obstructed - Cardiovascular Regular Rate - Mental Status Mental Status: Alert & Oriented, Answers Appropriately - Nausea Vomiting Nausea Vomiting: Not Present - Hydration Hydration: NPO - Discharge PostOp Status: Transfer Patient to floor
[2017-09-03 14:50] LABS: Hematocrit 43.2 % (37.5-50.1)
[2017-09-03] MEDS ORDERED: Artificial Tears SOLN 15 ML BOTTLE BOTH EYES PRN (14:51)
[2017-09-03] MEDS ORDERED: Sennosides 8.6 MG TABLET PO PRN (14:51)
[2017-09-03] MEDS ORDERED: Temazepam 15 MG CAPSULE PO PRN (14:51)
[2017-09-03] MEDS ORDERED: Naloxone 0.4 MG/ML INJ IVP PRN (14:51)
[2017-09-03] MEDS ORDERED: MOM Conc 10 ML UD.LIQ PO PRN ×2 (14:51)
[2017-09-03] MEDS ORDERED: tiZANidine 4 MG TABLET PO PRN (14:51)
[2017-09-03 14:53] LABS: Hemoglobin 14.4 g/dL (12.9-16.9)
[2017-09-03] MEDS ORDERED: *HR* OxyCODONE Immed Rel 5 MG TABLET PO PRN (15:57)
[2017-09-03] MEDS ORDERED: CeFAZolin Premix DUPLEX 2,000 MG/50 ML BAG IVPB SCH (16:00)
[2017-09-03] MEDS: Ascorbic Acid 500 MG TABLET PO SCH (16:10)
[2017-09-03] MEDS: *HR* OxyCODONE Immed Rel 5 MG TABLET PO PRN (16:10)
[2017-09-03] MEDS: Gabapentin 100 MG CAPSULE PO SCH ×2 (16:10→21:32)
[2017-09-03] MEDS: Cholecalciferol (D-3) 1,000 UNIT TABLET PO SCH (16:12)
[2017-09-03] MEDS: *HR* Enoxaparin 30 MG/0.3 ML SYRINGE SQ SCH (16:15)
[2017-09-03] MEDS ORDERED: ALPRAZolam 0.25 MG TABLET PO ONE (16:29)
[2017-09-03] MEDS: Divalproex Sodium 125 MG CAPSULE PO SCH (17:15)
[2017-09-03] MEDS: ALPRAZolam 0.25 MG TABLET PO SCH (17:16)
[2017-09-03] MEDS ORDERED: *HR* Enoxaparin 30 MG/0.3 ML SYRINGE SQ SCH (18:00)
[2017-09-03] MEDS ORDERED: Ipratropium/Albuterol Neb 3 ML IH ONE (19:30)
[2017-09-03] MEDS ORDERED: 0.9 % Sodium Chloride 500 ML IVC ONE (19:33)
[2017-09-03] MEDS: Ondansetron 4 MG/2 ML VIAL IVP PRN (19:35)
[2017-09-03] MEDS ORDERED: 0.9 % Sodium Chloride 1,000 ML ONE (19:38)
[2017-09-03] MEDS ORDERED: 0.9 % Sodium Chloride 1,000 ML IVC ONE (19:40)
[2017-09-03 20:01] LABS: Basophils % 0.1 %; Eosinophils # 0.1 K/mcL (0.0-0.6); Eosinophils % 0.5 %; Hematocrit 41.9 % (37.5-50.1); Immature Granulocytes % 0.6 % (0-4); Lymphocytes # 3.7 K/mcL (0.6-4.6); Mean Corpuscular HGB Conc 33.4 g/dL (31.6-35.5); Mean Corpuscular Hemoglobin 30.4 pg (28.0-33.3); Mean Corpuscular Volume 91.1 fL (83.0-100.0); Mean Platelet Volume 11.3 fL (9.4-12.4); Monocytes # 1.7 K/mcL (0.0-1.3); Monocytes % 12.5 %; Neutrophils # 8.1 K/mcL (1.6-8.9); Nucleated Red Blood Cells 0.1 /100 WBC (0); Platelet Count 176 K/mcL (140-400); Red Cell Distribution Width 13.3 % (11.5-14.5); Segmented Neutrophils % 59.3 %
[2017-09-03] MEDS: CeFAZolin Premix DUPLEX 2,000 MG/50 ML BAG IVPB SCH (20:11)
[2017-09-03 20:22] LABS: Alanine Aminotransferase 36 Units/L (7-52); Albumin 3.7 g/dL (3.5-5.7); Albumin/Globulin Ratio 1.2 (1.1-2.2); Alkaline Phosphatase 59 Units/L (34-104); Aspartate Amino Transferase 54 Units/L (13-39); BUN/Creatinine Ratio 19 (6-26); Bilirubin,Total 0.6 mg/dL (0.3-1.0); Blood Urea Nitrogen 17 mg/dL (6-20); Carbon Dioxide 30 mEq/L (23-29); Chloride 101 mEq/L (98-107); Glucose 132 mg/dL (70-105); Magnesium 1.7 mg/dL (1.6-2.6); Osmolality,Calculated 289 (280-300); Potassium 3.7 mEq/L (3.5-5.1); Sodium 138 mEq/L (136-145); Total Protein 6.7 g/dL (6.4-8.9); eGFR For African Americans > 60 (> 60); eGFR For Non-African Americans > 60 (> 60)
[2017-09-03 20:35] LABS: ABG Base Excess 0 mEq/L (-2 to 3); ABG HCO3 29 mEq/L (21-27); ABG Oxygen Saturation 96 % (95-98); ABG PCO2 66 mmHg (35-45); ABG PH 7.25 pH Units (7.32-7.45); ABG PO2 94 mmHg (85-104); ABG TCO2 31 mEq/L (20-26)
[2017-09-03] MEDS ORDERED: *HR* Metoprolol 5 MG/5 ML VIAL IVP ONE (22:03)
[2017-09-03] MEDS: Levofloxacin 750 MG/150 ML 750 MG/150 ML BAG IVPB SCH (22:27)
[2017-09-04] MEDS: Ondansetron 4 MG/2 ML VIAL IVP PRN (02:22)
[2017-09-04] MEDS: Acetaminophen 325 MG TABLET PO PRN ×3 (02:36→20:12)
[2017-09-04 03:49] LABS: Bilirubin,Urine Negative (Negative); Blood,Urine Negative (Negative); Clarity,Urine Clear (Clear); Color,Urine Yellow (Yellow); Glucose,Urine (UA) Normal (Normal); Ketones,Urine Negative (Negative); Leukocyte Esterase,Urine Negative (Negative); Nitrite,Urine Negative (Negative); PH,Urine 6.5 pH Units (5.0-8.0); Protein,Urine Negative (Neg-Trace); Specific Gravity,Urine 1.026 (1.010-1.025); Urobilinogen,Urine Normal (Normal)
--- NOTE | 2017-09-04 04:43 | Internal Medicine Consult Note ---
Date of Encounter: 09/03/17 Time of Encounter: 19:30 - Assessment and Plan (1) Sepsis Current Visit: Yes Status: Acute Assessment and plan: Pt does meet sepsis criteria with fever, elevated WBC, tachycardia, source of inf as PNA LA- WNL Sent for blood cx IV hydration NS @ 125ml/hr empirical abx Levaquin Blood cx ordered CXR ordered and reviewed by myself - showed RML infiltrate Reviewed his ABG - showed resp acidosis with Pco2 66 started him on BiPAP 06/27 cont close monitoring spent 60 minutes critical care time on this pt Qualifiers: Qualified Code(s): A41.9 - Sepsis, unspecified organism (2) Pneumonia Current Visit: No Status: Chronic Assessment and plan: Mostly bacterial cont empirical abx Levaquin Qualifiers: Pneumonia type: due to unspecified organism Laterality: bilateral Lung location: unspecified part of lung Qualified Code(s): J18.9 - Pneumonia, unspecified organism (3) Acute respiratory failure with hypoxia and hypercapnia Current Visit: Yes Status: Acute Assessment and plan: Cont BiPAP for now no need of steroids cont Duoneb (4) Status post total hip replacement, left Current Visit: No Status: Acute (5) Anxiety Current Visit: No Status: Chronic Assessment and plan: resumed all home meds (6) Chronic hepatitis C Current Visit: No Status: Chronic Qualifiers: Hepatic coma status: without hepatic coma Qualified Code(s): B18.2 - Chronic viral hepatitis C (7) Tobacco dependence Current Visit: No Status: Chronic Assessment and plan: on Nicotine patch (8) Traumatic brain injury Current Visit: No Status: Chronic Qualifiers: Encounter type: sequela Loss of consciousness presence/duration: with LOC of unspecified duration Qualified Code(s): S06.9X9S - Unspecified intracranial injury with loss of consciousness of unspecified duration, sequela Internal Medicine - CN: HPI - Data of Consult Requesting Physician: Jelani Ulloa MD - Consult Narrative History of present illness: Mr. Garcia is a 46 year old male with known h/o traumatic brain injury, DJD, Chronic Hep C, Asthma, Tobacco dependence, and hypothyroidism pt who had an elective left total hip replacement done today by Dr. Ulloa, after coming to the floor pt become very somnolent and barely arousable so we were asked to asses the pt. When I examined the pt he was hypoxic and requiring 10 lit O2 through Face mask, he is sleepy, however he is more alert, awake and O x 3. He denied any CP . He denied any cough. His HR was in 140's, had Fever T max 100.4. Past Med Surg Social Fam HX - Past Medical History Medical history: asthma, hepatitis, hypertension, thyroid disease, other Psychiatric history: anxiety, bipolar - Past Surgical History Surgical History: hip replacement, orthopedic, other, sinus surgery, other - Social History Smoking Status: Current every day smoker Packs per day: 1 Smokeless Tobacco Status: Yes Alcohol use: none Drug use: none - Family History Mother Hx Family Cardiac Disorders: No Hx Family Respiratory Disorders: No Hx Family Cancer: Yes Hx Family GI Disorders: Yes Hx Family Endocrine Disorder: Yes Hx Family Neuromuscular Disorders: No Hx Family Neurologic Disorders: No Hx Family HEENT Disorders: No Hx Family Autoimmune Disorders: No Review of systems: All the systems are reviewed everything is benign except the systems and symptoms I mentioned in the history of present illness Internal Medicine - CN: Meds Aspirin Enteric Coated [Aspirin EC] 325 mg PO DAILY 21 Days #21 tablet. [Rx] OxyCODONE Immed Rel [Roxicodone 5 MG] 5 mg PO Q6HR PRN 7 Days #28 tablet [Rx] ALPRAZolam [Xanax 0.25 MG Tablet] 0.25 mg PO BID 09/03/17 [History] Carboxymethylcellulose Sodium [Refresh Tears] 1 - 2 drop BOTH EYES DAILY PRN 07/09 [History] Cholecalciferol (Vitamin D3) [Vitamin D3] 50,000 unit PO Q14D 09/03/17 [History] Divalproex Sodium [Depakote Sprinkle] 250 mg PO 1200 09/03/17 [History] Divalproex Sodium [Depakote Sprinkle] 500 mg PO 0600 09/03/17 [History] Doxepin HCl 100 mg PO HS 09/03/17 [History] Escitalopram [Lexapro] 20 mg PO DAILY 09/03/17 [History] Gabapentin [Neurontin] 200 mg PO TID 09/03/17 [History] HYDROcodone/Acet 5/325 mg [[place] 5-325 mg] 1 tab PO BID PRN 09/03/17 [History] Haloperidol [Haldol] 1 mg PO BID 09/03/17 [History] Iron Polysaccharide Complex [Ferrex 150] 150 mg PO DAILY 09/03/17 [History] Levothyroxine [Synthroid] 75 mcg PO 0630 09/03/17 [History] MOM Conc [MILK OF MAGNESIA conc] 30 ml PO DAILY PRN 09/03/17 [History] Meloxicam [Mobic] 7.5 mg PO DAILY 09/03/17 [History] Multivitamin,Stress Formula/Zn [Stress B with Zinc Tablet] 1 tab PO DAILY [History] Tizanidine HCl 4 mg PO QID PRN 09/03/17 [History] Trihexyphenidyl [Artane] 2 mg PO BID 09/03/17 [History] hydroCHLOROthiazide [Hydrochlorothiazide] 12.5 mg PO DAILY 09/03/17 [History] 3 Allergy/AdvReac Type Severity Reaction Status Date / Time quetiapine [From Seroquel] AdvReac Rash Verified 09/03/17 10:37 Internal Medicine - CN: Exam - Constitutional Vitals: Temp Pulse Resp BP Pulse Ox 100.7 F H 129 22 105/75 94 09/04/17 02:38 09/04/17 02:38 09/04/17 02:38 09/04/17 02:38 09/04/17 02:38 General appearance IM: Present: cooperative, mild distress, A&O X 3, answers questions appropriately - Head Head exam: Present: atraumatic, normal inspection - Neck Neck exam general surgery: Present: supple - Respiratory Respiratory exam: Present: decreased breath sounds, respiratory distress ( moderate), wheezes. Absent: rales, rhonchi - Cardiovascular Cardiovascular exam IM: Present: +S1, +S2, tachycardia. Absent: systolic murmur - GI/Abdominal GI/Abdominal exam IM: Present: normal bowel sounds, soft. Absent: guarding, rebound, rigid, tenderness - Extremities Exam Extremities exam IM: Present: tenderness (Left hip.. Clean incision). Absent: calf tenderness, pedal edema - Back Exam Back exam: Absent: CVA tenderness (L), CVA tenderness (R) - Neurological Exam Neurological exam: Present: alert, altered, oriented X3. Absent: facial droop, speech deficit - Skin Skin exam IM: Absent: rash Internal Medicine - CN: Reslt - Labs CBC & Chem 7: 09/03/17 19:51 09/03/17 19:51 Labs: Short CBC 09/03/17 09/03/17 Range/Units 14:12 19:51 WBC 13.6 H (4.3-11.1) K/mcL Hgb 14.4 14.0 (12.9-16.9) g/dL Hct 43.2 41.9 (37.5-50.1) % Plt Count 176 (140-400) K/mcL Neutrophils # 8.1 (1.6-8.9) K/mcL BMP 09/03/17 19:51 Sodium 138 Potassium 3.7 Chloride 101 Carbon Dioxide 30 H BUN 17 Creatinine 0.88 Glucose 132 H Calcium 9.0 Cardiac Enzymes 09/03/17 Range/Units 19:51 Troponin I < 0.03 (< 0.04) ng/mL Liver Function 09/03/17 Range/Units 19:51 Total Bilirubin 0.6 (0.3-1.0) mg/dL AST 54 H (13-39) Units/L ALT 36 (7-52) Units/L Alkaline Phosphatase 59 (34-104) Units/L Albumin 3.7 (3.5-5.7) g/dL Urine 09/04/17 Range/Units 03:30 Urine Color Yellow (Yellow) Urine Clarity Clear (Clear) Urine pH 6.5 (5.0-8.0) pH Units Ur Specific [place] 1.026 H (1.010-1.025) Urine Protein Negative (Neg-Trace) mg/dL Urine Glucose (UA) Normal (Normal) mg/dL - ABG Interpretation ABG results: ABG ABG pH 7.25 pH Units (7.32-7.45) L 09/03/17 20:30 ABG pCO2 66 mmHg (35-45) H 09/03/17 20:30 ABG pO2 94 mmHg (85-104) 09/03/17 20:30 ABG O2 Saturation 96 % (95-98) 09/03/17 20:30 - Impressions Impressions Hip X-Ray 09/03/17 01:00 IMPRESSION: No radiographic evidence of complication status post left total hip arthroplasty. D/ / Bereket Luong MD / Bereket Luong MD Interpreting Provider: Bereket Luong MD Chest X-Ray 09/03/17 19:23 IMPRESSION: Patchy consolidation in the mid right lung could represent pneumonia. Radiographic follow up suggested in 6-8 weeks. D/ / Manuel Graves MD / Maunel Graves MD Interpreting Provider: Manuel Graves MD Consult Discharge Plan - Plan Referrals: Kaitlin Pierson MD [Primary Care Provider] -
[2017-09-04] MEDS: 0.9 % Sodium Chloride 1,000 ML IVC SCH ×2 (05:22→13:47)
[2017-09-04] MEDS: CeFAZolin Premix DUPLEX 2,000 MG/50 ML BAG IVPB SCH (05:23)
[2017-09-04] MEDS: Divalproex Sodium 125 MG CAPSULE PO SCH ×2 (05:24→12:07)
--- NOTE | 2017-09-04 06:24 | Orthopedics Progress Note ---
Date of Encounter: 09/04/17 Time of Encounter: 06:24 - Assessment and Plan (1) Arthritis of left hip Current Visit: Yes Status: Acute (2) Status post total hip replacement, right Current Visit: Yes Status: Chronic (3) HTN (hypertension) Current Visit: No Status: Chronic Qualifiers: Hypertension type: essential hypertension Qualified Code(s): I10 - Essential (primary) hypertension (4) Thyroid disease Current Visit: No Status: Chronic (5) Tobacco abuse Current Visit: No Status: Chronic (6) Traumatic brain injury Current Visit: No Status: Chronic Qualifiers: Encounter type: sequela Loss of consciousness presence/duration: with LOC of unspecified duration Qualified Code(s): S06.9X9S - Unspecified intracranial injury with loss of consciousness of unspecified duration, sequela (7) Depression with anxiety Current Visit: No Status: Chronic (8) Chronic hepatitis C Current Visit: No Status: Chronic Qualifiers: Hepatic coma status: without hepatic coma Qualified Code(s): B18.2 - Chronic viral hepatitis C (9) JANAY (obstructive sleep apnea) Current Visit: No Status: Chronic (10) Asthma Current Visit: No Status: Chronic Qualifiers: Asthma severity: unspecified severity Asthma persistence: unspecified Asthma complication type: unspecified Qualified Code(s): J45.909 - Unspecified asthma, uncomplicated (11) Tobacco dependence Current Visit: No Status: Chronic (12) Hypothyroidism Current Visit: No Status: Chronic Qualifiers: Hypothyroidism type: unspecified Qualified Code(s): E03.9 - Hypothyroidism , unspecified (13) Status post total hip replacement, left Current Visit: No Status: Acute Subjective Interval history: Patient was seen this morning doing well this morning without complaints. Afebrile vital signs stable. Operative extremity: Neurovascularly intact Dressing clean dry and intact Calves nontender Assessment and plan: Continue with postoperative care Awaiting results of flu swab, appreciate medical consult. Objective Vital signs: Vital Signs Temp Pulse Resp BP Pulse Ox 09/04/17 02:38 100.7 F H 129 22 105/75 94 09/03/17 22:48 101.0 F H 106 18 108/71 96 09/03/17 21:00 22 94 09/03/17 20:47 99.1 F 139 18 113/85 95 09/03/17 19:46 17 95 09/03/17 19:24 100.4 F H 147 20 136/90 89 09/03/17 18:58 99.7 F H 135 20 106/79 96 09/03/17 17:49 100.1 F H 150 18 114/65 93 09/03/17 17:18 134 114/71 92 09/03/17 16:15 106 16 132/88 94 09/03/17 15:40 97.7 F 109 16 120/86 93 09/03/17 14:31 97.8 F 93 14 111/82 92 09/03/17 14:21 97.8 F 90 14 113/76 96 09/03/17 14:11 97 14 108/83 98 09/03/17 14:01 90 14 114/94 95 09/03/17 13:51 98.3 F 96 12 124/92 97 09/03/17 12:17 104 18 154/99 97 09/03/17 12:15 102 18 133/100 97 09/03/17 12:12 102 16 112/89 97 09/03/17 12:11 100 18 111/84 97 09/03/17 12:08 107 18 101/81 98 09/03/17 12:05 104 18 102/89 97 09/03/17 12:02 95 16 119/82 97 09/03/17 11:59 94 16 124/80 98 09/03/17 11:56 94 16 111/86 98 09/03/17 11:53 93 16 107/72 97 09/03/17 11:45 97 16 138/106 96 09/03/17 11:35 98 16 126/93 98 09/03/17 10:31 97.8 F 96 18 138/102 96 09/03/17 10:06 97.8 F 96 18 138/102 96 Intake and Output 09/03/17 09/03/17 09/04/17 15:59 23:59 07:59 Intake Total 50 / 50 1390 / 1390 Output Total 300 / 300 0 / 0 1540 / 1540 Balance -300 / -300 50 / 50 -150 / -150 Intake: IV Fluids 50 / 50 1150 / 1150 0.9 % Sodium Chloride 1,000 ML 1000 / 1000 @ 1875 mls/hr IVC .Q32M [facility] Rx# :[id number] Ancef Premix DUPLEX 2,000 mg In 50 / 50 50 ml @ 100 mls/hr IVPB Q8H [facility] Rx#:[id number] Levaquin Premix 750mg/150 mL 150 / 150 750 mg In 150 ml @ 100 mls/hr IVPB Q24H [facility] Rx#:[id number] Oral 240 / 240 Output: Urine 0 / 0 0 / 0 0 / 0 Emesis 640 / 640 Estimated Blood Loss 300 / 300 Catheter 900 / 900 Other: Weight 103.419 kg Blood Glucose* 143 - Labs CBC & BMP: 09/03/17 19:51 09/03/17 19:51 Labs: Abnormal lab results WBC 13.6 K/mcL (4.3-11.1) H 09/03/17 19:51 Monocytes # 1.7 K/mcL (0.0-1.3) H 09/03/17 19:51 Nucleated RBCs/100 WBC 0.1 /100 WBC (0) H 09/03/17 19:51 ABG pH 7.25 pH Units (7.32-7.45) L 09/03/17 20:30 ABG pCO2 66 mmHg (35-45) H 09/03/17 20:30 ABG HCO3 29 mEq/L (21-27) H 09/03/17 20:30 ABG Total CO2 31 mEq/L (20-26) H 09/03/17 20:30 Carbon Dioxide 30 mEq/L (23-29) H 09/03/17 19:51 Glucose 132 mg/dL (70-105) H 09/03/17 19:51 POC Glucose 143 (58-89) H 09/03/17 19:19 AST 54 Units/L (13-39) H 09/03/17 19:51 Ur Specific [place] 1.026 (1.010-1.025) H 09/04/17 03:30 - VTE Documentation of Mechanical Device: Venous foot pump, device Consult Discharge Plan - Plan Referrals: Kaitlin Pierson MD [Primary Care Provider] -
[2017-09-04 07:00] LABS: Adenovirus Not Detected (Not Detect); Bordetella Pertussis Not Detected (Not Detect); Chlamydophila pneumoniae Not Detected (Not Detect); Coronavirus 229E Not Detected (Not Detect); Coronavirus HKU1 Not Detected (Not Detect); Coronavirus NL63 Not Detected (Not Detect); Coronavirus OC43 Not Detected (Not Detect); Human Metapneumovirus Not Detected (Not Detect); Human Rhinovirus/Enterovirus Not Detected (Not Detect); Influenza A Subtype 2009 H1 Not Detected (Not Detect); Influenza A Untypeable Not Detected (Not Detect); Influenza B Not Detected (Not Detect); Mycoplasma pneumoniae Not Detected (Not Detect); Parainfluenza Virus 1 Not Detected (Not Detect); Parainfluenza Virus 2 Not Detected (Not Detect); Parainfluenza Virus 3 Not Detected (Not Detect); Parainfluenza Virus 4 Not Detected (Not Detect); Respiratory Syncytial Virus Not Detected (Not Detect)
[2017-09-04] MEDS: *HR* Enoxaparin 30 MG/0.3 ML SYRINGE SQ SCH ×2 (07:33→16:49)
[2017-09-04] MEDS: Iron Polysaccharide Complex 150 MG CAPSULE PO SCH (07:34)
[2017-09-04] MEDS: Multivit/Ca/Min/Fe/FA 1 TAB TABLET PO SCH (07:34)
[2017-09-04] MEDS: ALPRAZolam 0.25 MG TABLET PO SCH ×2 (07:34→21:52)
[2017-09-04] MEDS: Vitamin B Complex/Vit C/Vit E 1 EACH TABLET PO SCH (07:34)
[2017-09-04] MEDS: Gabapentin 100 MG CAPSULE PO SCH ×3 (07:34→20:13)
[2017-09-04] MEDS: Ascorbic Acid 500 MG TABLET PO SCH ×2 (07:34→15:58)
[2017-09-04] MEDS: Cholecalciferol (D-3) 1,000 UNIT TABLET PO SCH (07:34)
[2017-09-04 07:57] LABS: Basophils % 0.1 %; Immature Granulocytes % 0.3 % (0-4)
[2017-09-04 08:08] LABS: Eosinophils % 0.3 %; Hematocrit 34.1 % (37.5-50.1); Hemoglobin 11.9 g/dL (12.9-16.9); Lymphocytes # 2.1 K/mcL (0.6-4.6); Lymphocytes % 25.9 %; Mean Corpuscular HGB Conc 34.9 g/dL (31.6-35.5); Mean Corpuscular Hemoglobin 31.2 pg (28.0-33.3); Mean Corpuscular Volume 89.3 fL (83.0-100.0); Mean Platelet Volume 12.4 fL (9.4-12.4); Monocytes # 0.7 K/mcL (0.0-1.3); Neutrophils # 5.2 K/mcL (1.6-8.9); Platelet Count 127 K/mcL (140-400); Red Blood Count 3.82 M/mcL (4.19-5.50); Segmented Neutrophils % 64.4 %
[2017-09-04 08:47] LABS: Sodium 131 mEq/L (136-145)
[2017-09-04 08:48] LABS: BUN/Creatinine Ratio 20 (6-26); Blood Urea Nitrogen 14 mg/dL (6-20); Calcium 8.3 mg/dL (8.6-10.3); Carbon Dioxide 28 mEq/L (23-29); Chloride 97 mEq/L (98-107); Glucose 136 mg/dL (70-105); Osmolality,Calculated 275 (280-300); eGFR For African Americans > 60 (> 60); eGFR For Non-African Americans > 60 (> 60)
[2017-09-04] MEDS ORDERED: hydroCHLOROthiazide 25 MG TABLET PO SCH (09:00)
[2017-09-04] MEDS: *HR* OxyCODONE Immed Rel 5 MG TABLET PO PRN ×3 (10:31→20:12)
[2017-09-04] MEDS: Ipratropium/Albuterol Neb 3 ML IH SCH ×5 (10:40→23:20)
[2017-09-04] MEDS ORDERED: 0.9 % Sodium Chloride 500 ML IVC ONE ×3 (11:54→15:48)
[2017-09-04] MEDS ORDERED: 0.9 % Sodium Chloride 500 ML ONE (11:57)
--- NOTE | 2017-09-04 14:31 | Electrocardiograph Report ---
[address] [address] Test Date: 2017-09-04 Pat Name: Elda Garcia Department: 114 Room: [facility] Gender: M [place] [employer]er: : 1970 Requested By: Ian Ortiz Order Number: [id number] Reading MD: Brianna Pineda Measurements Intervals [place] Rate: 114 P: 31 KS: 122 QRS: 3 QRSD: 110 T: 0 QT: 332 QTc: 400 Interpretive Statements SINUS TACHYCARDIA NONSPECIFIC ST & T-WAVE ABNORMALITY ABNORMAL RHYTHM ECG Electronically Signed On 09-04-2017 14:29:10 EST by Brianna Pineda
--- NOTE | 2017-09-04 18:11 | Event Note ---
Date of Encounter: 09/04/17 Time of Encounter: 12:50 PCR- POD#1 L THR robotic Ulloa 09/03/17 PCR - Patient seen at bedside. Pain control: Adequate Participating in PT. All questions and concerns addressed. Educated on use of incentive spirometer, ambulation, and hydration. Patient educated on post-operative restrictions and care. Addressed: Patient had hypoxic and unresponsive episode evening after surgery. When patient was seen by this provider around 4pm yesterday, he was alert and oriented and sitting independently in chair. Received call around 7pm that patient had become unresponsive so orders were placed for hospitalist consult. Patient has had extensive work up and presumptive cause is pneumonia. Patient on O2 via [place] during visit today. Appreciate medical team work up and treatment. D/C plan: Back to [facility] where he resides
[2017-09-04] MEDS: Levofloxacin 750 MG/150 ML 750 MG/150 ML BAG IVPB SCH (21:52)
[2017-09-05] MEDS: *HR* OxyCODONE Immed Rel 5 MG TABLET PO PRN ×6 (00:52→21:31)
[2017-09-05] MEDS: 0.9 % Sodium Chloride 1,000 ML IVC SCH ×3 (00:56→21:40)
[2017-09-05] MEDS: Ipratropium/Albuterol Neb 3 ML IH SCH ×5 (04:50→20:01)
[2017-09-05] MEDS: *HR* Enoxaparin 30 MG/0.3 ML SYRINGE SQ SCH ×2 (05:52→16:28)
[2017-09-05] MEDS: Divalproex Sodium 125 MG CAPSULE PO SCH ×2 (05:52→10:55)
--- NOTE | 2017-09-05 06:04 | Orthopedics Progress Note ---
Date of Encounter: 09/05/17 Time of Encounter: 06:04 - Assessment and Plan (1) Arthritis of left hip Current Visit: Yes Status: Acute (2) Status post total hip replacement, right Current Visit: Yes Status: Chronic (3) HTN (hypertension) Current Visit: No Status: Chronic Qualifiers: Hypertension type: essential hypertension Qualified Code(s): I10 - Essential (primary) hypertension (4) Thyroid disease Current Visit: No Status: Chronic (5) Tobacco abuse Current Visit: No Status: Chronic (6) Traumatic brain injury Current Visit: No Status: Chronic Qualifiers: Encounter type: sequela Loss of consciousness presence/duration: with LOC of unspecified duration Qualified Code(s): S06.9X9S - Unspecified intracranial injury with loss of consciousness of unspecified duration, sequela (7) Depression with anxiety Current Visit: No Status: Chronic (8) Chronic hepatitis C Current Visit: No Status: Chronic Qualifiers: Hepatic coma status: without hepatic coma Qualified Code(s): B18.2 - Chronic viral hepatitis C (9) JANAY (obstructive sleep apnea) Current Visit: No Status: Chronic (10) Asthma Current Visit: No Status: Chronic Qualifiers: Asthma severity: unspecified severity Asthma persistence: unspecified Asthma complication type: unspecified Qualified Code(s): J45.909 - Unspecified asthma, uncomplicated (11) Tobacco dependence Current Visit: No Status: Chronic (12) Hypothyroidism Current Visit: No Status: Chronic Qualifiers: Hypothyroidism type: unspecified Qualified Code(s): E03.9 - Hypothyroidism , unspecified (13) Status post total hip replacement, left Current Visit: No Status: Acute (14) Shortness of breath Current Visit: No Status: Acute (15) Pneumonia Current Visit: No Status: Chronic Qualifiers: Pneumonia type: due to unspecified organism Laterality: bilateral Lung location: unspecified part of lung Qualified Code(s): J18.9 - Pneumonia, unspecified organism (16) Postoperative urinary retention Current Visit: Yes Status: Acute Subjective Interval history: Patient was seen this morning doing well this morning without complaints. Afebrile vital signs stable. Operative extremity: Neurovascularly intact Dressing clean dry and intact Calves nontender Assessment and plan: Continue with postoperative care Fluids negative discharged today Objective Vital signs: Vital Signs Temp Pulse Resp BP Pulse Ox 09/05/17 04:50 19 97 09/05/17 04:16 99.5 F 112 18 112/79 98 09/05/17 00:46 98.6 F 105 18 116/79 95 09/04/17 23:20 16 96 09/04/17 22:12 99.2 F 116 19 111/60 95 09/04/17 20:06 100.3 F H 111 24 118/83 93 09/04/17 16:51 95 09/04/17 16:33 16 95 09/04/17 15:31 98.4 F 102 17 127/82 95 09/04/17 12:47 126 133/88 93 09/04/17 12:12 16 93 09/04/17 11:29 98.3 F 122 17 107/75 93 09/04/17 07:32 115/73 95 09/04/17 06:35 98.6 F 134 20 97/70 97 Intake and Output 09/04/17 09/04/17 09/05/17 15:59 23:59 07:59 Intake Total 1000 / 1000 1000 / 1000 150 / 150 Output Total 250 / 250 1175 / 1175 1500 / 1500 Balance 750 / 750 -175 / -175 -1350 / -1350 Intake: IV Fluids 1000 / 1000 1000 / 1000 150 / 150 0.9 % Sodium Chloride 1,000 ML 1000 / 1000 1000 / 1000 @ 100 mls/hr IVC .Q10H [facility] Rx#: [id number] Levaquin Premix 750mg/150 mL 150 / 150 750 mg In 150 ml @ 100 mls/hr IVPB Q24H [facility] Rx#:[id number] Output: Urine 250 / 250 900 / 900 Catheter 275 / 275 1500 / 1500 Urethral ([place]) 275 / 275 Other: Meal Breakfast Percent of Meal Consumed 50% - Labs CBC & BMP: 09/04/17 06:48 09/04/17 06:48 Labs: Abnormal lab results RBC 3.82 M/mcL (4.19-5.50) L 09/04/17 06:48 Hgb 11.9 g/dL (12.9-16.9) L D 09/04/17 06:48 Hct 34.1 % (37.5-50.1) L 09/04/17 06:48 Plt Count 127 K/mcL (140-400) L 09/04/17 06:48 Nucleated RBCs/100 WBC 0.1 /100 WBC (0) H 09/03/17 19:51 ABG pH 7.25 pH Units (7.32-7.45) L 09/03/17 20:30 ABG pCO2 66 mmHg (35-45) H 09/03/17 20:30 ABG HCO3 29 mEq/L (21-27) H 09/03/17 20:30 ABG Total CO2 31 mEq/L (20-26) H 09/03/17 20:30 Sodium 131 mEq/L (136-145) L 09/04/17 06:48 Chloride 97 mEq/L (98-107) L 09/04/17 06:48 Glucose 136 mg/dL (70-105) H 09/04/17 06:48 POC Glucose 143 (58-89) H 09/03/17 19:19 Calculated Osmolality 275 (280-300) L 09/04/17 06:48 Calcium 8.3 mg/dL (8.6-10.3) L 09/04/17 06:48 AST 54 Units/L (13-39) H 09/03/17 19:51 Ur Specific [place] 1.026 (1.010-1.025) H 09/04/17 03:30 - VTE Documentation of Mechanical Device: Venous foot pump, device Consult Discharge Plan - Plan Referrals: Kaitlin Pierson MD [Primary Care Provider] -
[2017-09-05 06:05] LABS: Hematocrit 29.6 % (37.5-50.1)
[2017-09-05 06:09] LABS: Hemoglobin 10.1 g/dL (12.9-16.9)
[2017-09-05 06:33] LABS: BUN/Creatinine Ratio 13 (6-26); Blood Urea Nitrogen 7 mg/dL (6-20); Calcium 8.4 mg/dL (8.6-10.3); Carbon Dioxide 33 mEq/L (23-29); Chloride 99 mEq/L (98-107); Glucose 128 mg/dL (70-105); Osmolality,Calculated 278 (280-300); Potassium 3.7 mEq/L (3.5-5.1); Sodium 134 mEq/L (136-145); eGFR For African Americans > 60 (> 60); eGFR For Non-African Americans > 60 (> 60)
[2017-09-05] MEDS: Multivit/Ca/Min/Fe/FA 1 TAB TABLET PO SCH (09:03)
[2017-09-05] MEDS: Gabapentin 100 MG CAPSULE PO SCH ×3 (09:03→21:30)
[2017-09-05] MEDS: Vitamin B Complex/Vit C/Vit E 1 EACH TABLET PO SCH (09:03)
[2017-09-05] MEDS: Iron Polysaccharide Complex 150 MG CAPSULE PO SCH (09:03)
[2017-09-05] MEDS: ALPRAZolam 0.25 MG TABLET PO SCH ×2 (09:03→21:31)
[2017-09-05] MEDS: Cholecalciferol (D-3) 1,000 UNIT TABLET PO SCH (09:04)
[2017-09-05] MEDS: Ascorbic Acid 500 MG TABLET PO SCH ×2 (09:04→16:28)
[2017-09-05] MEDS: Acetaminophen 325 MG TABLET PO PRN (10:55)
--- NOTE | 2017-09-05 16:19 | Event Note ---
Date of Encounter: 09/05/17 Time of Encounter: 13:00 PCR- POD#2 L THR robotic Ulloa 09/03/17 PCR - Patient seen at bedside. Pain control: will add lidoderm patch for better control Participating in PT. All questions and concerns addressed. Educated on use of incentive spirometer, ambulation, and hydration. Patient educated on post-operative restrictions and care. Addressed: Hospitalist managing pneumonia, blood cx preliminary negative D/C plan: resides at [facility] due to previous TBI, bed on hold for him to return once medically cleared, likely DC tomorrow
--- NOTE | 2017-09-05 19:44 | Internal Med Progress Note ---
Date of Encounter: 09/06/17 Time of Encounter: 11:00 - Assessment and plan (1) Sepsis Current Visit: Yes Status: Acute Assessment and plan: Improving due to fluid resuscitation and IV antibiotics -Continue current medical management for one more day Qualifiers: Sepsis type: sepsis due to unspecified organism Qualified Code(s): A41.9 - Sepsis, unspecified organism (2) Pneumonia Current Visit: No Status: Chronic Assessment and plan: -Patient is now afebrile and leukocytosis has resolved. -Continue IV Levaquin Qualifiers: Pneumonia type: due to unspecified organism Laterality: bilateral Lung location: unspecified part of lung Qualified Code(s): J18.9 - Pneumonia, unspecified organism (3) HTN (hypertension) Current Visit: No Status: Chronic Assessment and plan: -Okay to resume hydrochlorothiazide on 09/06/17 and to continue as outpatient for hypertension management Qualifiers: Hypertension type: essential hypertension Qualified Code(s): I10 - Essential (primary) hypertension (4) Hypothyroidism Current Visit: No Status: Chronic Assessment and plan: -Continue home dose of levothyroxine Qualifiers: Hypothyroidism type: unspecified Qualified Code(s): E03.9 - Hypothyroidism , unspecified (5) Status post total hip replacement, left Current Visit: No Status: Acute Assessment and plan: -Per orthopedic surgery team (6) DVT prophylaxis Current Visit: Yes Status: Acute Assessment and plan: -Lovenox subcutaneous - Subjective Interval history: Patient with sepsis secondary to pneumonia but improving; tachycardia improving and patient no longer hypotensive after IV fluid resuscitation and IV antibiotics Will monitor 1 more day consider discharge for 09/06/17 - Constitutional Vitals: Temp Pulse Resp BP Pulse Ox 98.2 F 102 18 121/79 97 09/05/17 18:34 09/05/17 18:34 09/05/17 18:34 09/05/17 18:34 09/05/17 18:34 General appearance: Present: cooperative, mild distress, A&O X 3, no acute distress, answers questions appropriately - Respiratory Respiratory exam: Present: CTAB. Absent: accessory muscle use, rales, rhonchi, wheezes - Cardiovascular Cardiovascular exam: Present: RRR, +S1, +S2. Absent: diastolic murmur, gallop, rubs, systolic murmur Internal Medicine: Result - Labs CBC & Chem 7: 09/05/17 05:56 09/05/17 05:56 Labs: Short CBC 09/05/17 Range/Units 05:56 Hgb 10.1 L D (12.9-16.9) g/dL Hct 29.6 L (37.5-50.1) % BMP 09/05/17 05:56 Sodium 134 L Potassium 3.7 Chloride 99 Carbon Dioxide 33 H BUN 7 Creatinine 0.54 L Glucose 128 H Calcium 8.4 L - ABG Interpretation ABG results: ABG ABG pH 7.25 pH Units (7.32-7.45) L 09/03/17 20:30 ABG pCO2 66 mmHg (35-45) H 09/03/17 20:30 ABG pO2 94 mmHg (85-104) 09/03/17 20:30 ABG O2 Saturation 96 % (95-98) 09/03/17 20:30 - VTE Documentation of Mechanical Device: Venous foot pump, device Consult Discharge Plan - Plan Referrals: Kaitlin Pierson MD [Primary Care Provider] -
[2017-09-05] MEDS: Levofloxacin 750 MG/150 ML 750 MG/150 ML BAG IVPB SCH (21:31)
[2017-09-06] MEDS: Ipratropium/Albuterol Neb 3 ML IH SCH ×4 (00:03→11:21)
[2017-09-06] MEDS: *HR* OxyCODONE Immed Rel 5 MG TABLET PO PRN ×3 (04:03→12:50)
[2017-09-06] MEDS: *HR* Enoxaparin 30 MG/0.3 ML SYRINGE SQ SCH (06:13)
[2017-09-06] MEDS: Divalproex Sodium 125 MG CAPSULE PO SCH ×2 (06:13→11:16)
[2017-09-06] MEDS: Cholecalciferol (D-3) 1,000 UNIT TABLET PO SCH (08:00)
[2017-09-06] MEDS: Gabapentin 100 MG CAPSULE PO SCH (08:01)
[2017-09-06] MEDS: Ascorbic Acid 500 MG TABLET PO SCH (08:01)
[2017-09-06] MEDS: Vitamin B Complex/Vit C/Vit E 1 EACH TABLET PO SCH (08:01)
[2017-09-06] MEDS: Multivit/Ca/Min/Fe/FA 1 TAB TABLET PO SCH (08:01)
[2017-09-06] MEDS: Iron Polysaccharide Complex 150 MG CAPSULE PO SCH (08:01)
[2017-09-06] MEDS: ALPRAZolam 0.25 MG TABLET PO SCH (08:01)
[2017-09-06 09:29] LABS: Basophils % 0.2 %; Eosinophils # 0.3 K/mcL (0.0-0.6); Eosinophils % 3.9 %; Hematocrit 27.5 % (37.5-50.1); Hemoglobin 9.2 g/dL (12.9-16.9); Immature Granulocytes % 1.3 % (0-4); Lymphocytes # 1.9 K/mcL (0.6-4.6); Lymphocytes % 29.8 %; Mean Corpuscular HGB Conc 33.5 g/dL (31.6-35.5); Mean Corpuscular Hemoglobin 30.6 pg (28.0-33.3); Mean Corpuscular Volume 91.4 fL (83.0-100.0); Mean Platelet Volume 11.6 fL (9.4-12.4); Monocytes # 0.6 K/mcL (0.0-1.3); Monocytes % 9.5 %; Neutrophils # 3.5 K/mcL (1.6-8.9); Nucleated Red Blood Cells 0.8 /100 WBC (0); Platelet Count 114 K/mcL (140-400); Red Blood Count 3.01 M/mcL (4.19-5.50); Red Cell Distribution Width 13.2 % (11.5-14.5); Segmented Neutrophils % 55.3 %
--- NOTE | 2017-09-06 09:33 | Orthopedics Progress Note ---
Date of Encounter: 09/06/17 Time of Encounter: 09:32 - Assessment and Plan (1) Arthritis of left hip Current Visit: Yes Status: Acute (2) Status post total hip replacement, right Current Visit: Yes Status: Chronic (3) HTN (hypertension) Current Visit: No Status: Chronic Qualifiers: Hypertension type: essential hypertension Qualified Code(s): I10 - Essential (primary) hypertension (4) Thyroid disease Current Visit: No Status: Chronic (5) Tobacco abuse Current Visit: No Status: Chronic (6) Traumatic brain injury Current Visit: No Status: Chronic Qualifiers: Encounter type: sequela Loss of consciousness presence/duration: with LOC of unspecified duration Qualified Code(s): S06.9X9S - Unspecified intracranial injury with loss of consciousness of unspecified duration, sequela (7) Depression with anxiety Current Visit: No Status: Chronic (8) Chronic hepatitis C Current Visit: No Status: Chronic Qualifiers: Hepatic coma status: without hepatic coma Qualified Code(s): B18.2 - Chronic viral hepatitis C (9) JANAY (obstructive sleep apnea) Current Visit: No Status: Chronic (10) Asthma Current Visit: No Status: Chronic Qualifiers: Asthma severity: unspecified severity Asthma persistence: unspecified Asthma complication type: unspecified Qualified Code(s): J45.909 - Unspecified asthma, uncomplicated (11) Tobacco dependence Current Visit: No Status: Chronic (12) Hypothyroidism Current Visit: No Status: Chronic Qualifiers: Hypothyroidism type: unspecified Qualified Code(s): E03.9 - Hypothyroidism , unspecified (13) Status post total hip replacement, left Current Visit: No Status: Acute (14) Shortness of breath Current Visit: No Status: Acute (15) Pneumonia Current Visit: No Status: Chronic Qualifiers: Pneumonia type: due to unspecified organism Laterality: bilateral Lung location: unspecified part of lung Qualified Code(s): J18.9 - Pneumonia, unspecified organism (16) Postoperative urinary retention Current Visit: Yes Status: Acute Subjective Interval history: Patient was seen this morning doing well this morning without complaints. Afebrile vital signs stable. Operative extremity: Neurovascularly intact Dressing clean dry and intact Calves nontender Assessment and plan: Discharged today Objective Vital signs: Vital Signs Temp Pulse Resp BP Pulse Ox 09/06/17 08:53 96 09/06/17 08:15 20 98 09/06/17 07:16 98.5 F 99 16 127/68 96 09/06/17 03:51 98.3 F 83 18 124/81 95 09/06/17 00:05 18 98 09/05/17 23:34 98.6 F 101 18 113/74 97 09/05/17 18:34 98.2 F 102 18 121/79 97 09/05/17 15:00 98.9 F 97 16 134/73 97 09/05/17 10:11 98.7 F 116 18 139/68 95 Intake and Output 09/05/17 09/06/17 09/06/17 23:59 07:59 15:59 Intake Total 1240 / 1240 Output Total 1125 / 1125 900 / 900 500 / 500 Balance 115 / 115 -900 / -900 -500 / -500 Intake: IV Fluids 1000 / 1000 0.9 % Sodium Chloride 1,000 ML 1000 / 1000 @ 100 mls/hr IVC .Q10H MARKOS Rx#: [id number] Oral 240 / 240 Output: Urine 1125 / 1125 900 / 900 500 / 500 - Labs CBC & BMP: 09/05/17 05:56 09/05/17 05:56 Labs: Abnormal lab results RBC 3.82 M/mcL (4.19-5.50) L 09/04/17 06:48 Hgb 10.1 g/dL (12.9-16.9) L D 09/05/17 05:56 Hct 29.6 % (37.5-50.1) L 09/05/17 05:56 Plt Count 127 K/mcL (140-400) L 09/04/17 06:48 Nucleated RBCs/100 WBC 0.1 /100 WBC (0) H 09/03/17 19:51 ABG pH 7.25 pH Units (7.32-7.45) L 09/03/17 20:30 ABG pCO2 66 mmHg (35-45) H 09/03/17 20:30 ABG HCO3 29 mEq/L (21-27) H 09/03/17 20:30 ABG Total CO2 31 mEq/L (20-26) H 09/03/17 20:30 Sodium 134 mEq/L (136-145) L 09/05/17 05:56 Carbon Dioxide 33 mEq/L (23-29) H 09/05/17 05:56 Creatinine 0.54 mg/dL (0.70-1.30) L 09/05/17 05:56 Glucose 128 mg/dL (70-105) H 09/05/17 05:56 POC Glucose 143 (58-89) H 09/03/17 19:19 Calculated Osmolality 278 (280-300) L 09/05/17 05:56 Calcium 8.4 mg/dL (8.6-10.3) L 09/05/17 05:56 AST 54 Units/L (13-39) H 09/03/17 19:51 Ur Specific [place] 1.026 (1.010-1.025) H 09/04/17 03:30 - VTE Documentation of Mechanical Device: Venous foot pump, device Consult Discharge Plan - Plan Referrals: Jennifer Gill, PAC [Physician Optical Laboratory Manager] - 09/13/17 9:30 am () Jelani Ulloa MD [Partnered Physician] - 10/03/17 4:50 pm Leonidas Nguyễn DO [Partnered Physician] - 09/14/17 2:40 pm Veronica Mayorga, PAC [Physician Optical Laboratory Manager] - 01/01/18 1:15 pm Kaitlin Pierson MD [Primary Care Provider] - Kaela Cramer MD [Partnered Physician] - 09/25/17 1:40 pm
[2017-09-06 09:51] LABS: BUN/Creatinine Ratio 11 (6-26); Blood Urea Nitrogen 5 mg/dL (6-20); Calcium 8.3 mg/dL (8.6-10.3); Carbon Dioxide 32 mEq/L (23-29); Chloride 99 mEq/L (98-107); Glucose 112 mg/dL (70-105); Osmolality,Calculated 280 (280-300); Potassium 3.4 mEq/L (3.5-5.1); Sodium 136 mEq/L (136-145); eGFR For African Americans > 60 (> 60); eGFR For Non-African Americans > 60 (> 60)
[2017-09-06 10:38] VITALS: BP 128/92
--- NOTE | 2017-09-06 15:54 | Internal Med Progress Note ---
Date of Encounter: 09/06/17 Time of Encounter: 11:00 - Assessment and plan (1) Sepsis Status: Acute Assessment and plan: Resolved Qualifiers: Sepsis type: sepsis due to unspecified organism Qualified Code(s): A41.9 - Sepsis, unspecified organism (2) Pneumonia Status: Chronic Assessment and plan: -Patient is now afebrile and leukocytosis has resolved. -Continue a 5 day course of oral Levaquin Qualifiers: Pneumonia type: due to unspecified organism Laterality: bilateral Lung location: unspecified part of lung Qualified Code(s): J18.9 - Pneumonia, unspecified organism (3) HTN (hypertension) Status: Chronic Assessment and plan: -Okay to resume hydrochlorothiazide on 09/06/17 and to continue as outpatient for hypertension management Qualifiers: Hypertension type: essential hypertension Qualified Code(s): I10 - Essential (primary) hypertension (4) Hypothyroidism Status: Chronic Qualifiers: Hypothyroidism type: unspecified Qualified Code(s): E03.9 - Hypothyroidism , unspecified (5) Status post total hip replacement, left Status: Acute Assessment and plan: -Per orthopedic surgery team (6) DVT prophylaxis Status: Acute Assessment and plan: -Lovenox subcutaneous - Subjective Interval history: Patient with sepsis secondary to pneumonia has resolved and is medically stable for discharge - Constitutional Vitals: Temp Pulse Resp BP Pulse Ox 97.8 F 98 16 128/92 97 09/06/17 10:37 09/06/17 10:37 09/06/17 10:37 09/06/17 10:37 09/06/17 10:37 General appearance: Present: cooperative, mild distress, A&O X 3, no acute distress, answers questions appropriately - Psychiatric Psychiatric exam: Present: normal mood - Skin Skin exam: Present: normal color Internal Medicine: Result - Labs CBC & Chem 7: 09/06/17 09:05 09/06/17 09:05 Labs: Short CBC 09/06/17 Range/Units 09:05 WBC 6.3 (4.3-11.1) K/mcL Hgb 9.2 L (12.9-16.9) g/dL Hct 27.5 L (37.5-50.1) % Plt Count 114 L (140-400) K/mcL Neutrophils # 3.5 (1.6-8.9) K/mcL BMP 09/06/17 09:05 Sodium 136 Potassium 3.4 L Chloride 99 Carbon Dioxide 32 H BUN 5 L Creatinine 0.46 L Glucose 112 H Calcium 8.3 L - ABG Interpretation ABG results: ABG ABG pH 7.25 pH Units (7.32-7.45) L 09/03/17 20:30 ABG pCO2 66 mmHg (35-45) H 09/03/17 20:30 ABG pO2 94 mmHg (85-104) 09/03/17 20:30 ABG O2 Saturation 96 % (95-98) 09/03/17 20:30 - VTE Documentation of Mechanical Device: Venous foot pump, device Consult Discharge Plan - Plan Referrals: Jennifer Gill, PAC [Physician Gerentological Physiotherapist] - 09/13/17 9:30 am () Jelani Ulloa MD [Partnered Physician] - 10/03/17 4:50 pm Leonidas Nguyễn DO [Partnered Physician] - 09/14/17 2:40 pm Veronica Mayorga, PAC [Physician Gerentological Physiotherapist] - 01/01/18 1:15 pm Kaitlin Pierson MD [Primary Care Provider] - Kaela Cramer MD [Partnered Physician] - 09/25/17 1:40 pm
--- NOTE | 2017-09-06 16:44 | Event Note ---
Date of Encounter: 09/06/17 Time of Encounter: 16:42 S/w Dr. Ortiz re: d/c dose of Levaquin for asp pna. Per Dr. Ortiz he recommends 500mg of Levaquin QD for 5 days after discharge from hospital.
--- NOTE | 2017-09-06 17:46 | Event Note ---
Date of Encounter: 09/06/17 Time of Encounter: 12:30 PCR- POD#3 L THR robotic Ulloa 09/03/17 PCR - Patient seen at bedside. No longer on supplemental oxygen. Pain control: adequate Participating in PT. All questions and concerns addressed. Educated on use of incentive spirometer, ambulation, and hydration. Patient educated on post-operative restrictions and care. Addressed: Hospitalist managing pneumonia, blood cx preliminary negative, per medical team patient to be sent out on PO meds D/C plan: resides at [facility] due to previous TBI, bed on hold for him to return once medically cleared, DC today
== END 2017-09-06 15:15 | DRG 301 ==
LOC: SAMDAY 09:45 → 3NENU 14:28 → SUATTDRO 14:33
PROVIDERS: ADMIT Orthopaedic Surgery; ATTEND Hospitalist

== ENCOUNTER 2018-10-18 11:27 | Inpatient (IN) ==
--- NOTE | 2018-10-18 16:11 | Internal Med History&Physical ---
<Flash Gentile - Last Filed: 10/18/18 16:58> Date of Encounter: 10/18/18 Time of Encounter: 16:10 Internal Medicine - H&P: HPI Chief complaint: Confusion Admitted From: Hospital to Hospital Transfer Plans for Post Hospital Care: Home History of present illness: Mr. Garcia is a 48 year old male with history of hep C, bipolar depression, TBI, asthma who presented to [facility] ED accompanied by sister and POA for complaint of altered mental status. She states that this morning the patient initially began complaining of chills and body shakes, and then quickly became confused and agitated. She states that he stood up, became irrate and started yelling "ma'am." This began at around 5am, however the patient was previously well. She states that he has not had any alarming symptoms prior to this, and has not been complaining of pain, cough, shortness of breath, or changes of urinary or bowel habits. The patient does have history of hepatitis C, and she has noted that he's had swelling of the abdomen over the past several months. She also notes that he has had less frequent bowel movements recently, and has had no bowel movements in the past two days. In the ED, the patient had a CXR which demonstrated diffuse B/L infiltrates consistent with atypical pneumonia vs pulmonary edema.. He did have labs significant for lactic acid 2.9, ammonia 126. The patient additionally had fever 103, HR >100. He was transferred to [facility] for management of sepsis and encephalopathy. Past Med Surg Social Fam HX - Past Medical History Medical history: asthma, hepatitis, hypertension, thyroid disease, other Additional medical history: brain injury Psychiatric history: anxiety, bipolar, depression - Past Surgical History Surgical History: hip replacement, orthopedic, other, sinus surgery, other Additional surgical history: R hip, L shoulder x3, R shoulder, feeding tube, L ear cancer - Social History Smoking Status: Current every day smoker Smokeless Tobacco Status: No Alcohol use: none Drug use: none, other (Hx POLYsubstance abuse) - Family History Mother Hx Family Cardiac Disorders: No Hx Family Respiratory Disorders: No Hx Family Cancer: Yes Hx Family GI Disorders: Yes Hx Family Endocrine Disorder: Yes Hx Family Neuromuscular Disorders: No Hx Family Neurologic Disorders: No Hx Family HEENT Disorders: No Hx Family Autoimmune Disorders: No Internal Medicine - H&P: Meds Cholecalciferol (Vitamin D3) [Vitamin D3] 50,000 unit PO PER PKG DI 09/03/17 [History] Doxepin HCl 100 mg PO HS 09/03/17 [History] Gabapentin [Neurontin] 600 mg PO TID 09/03/17 [History] Haloperidol [Haldol] 1 mg PO BID 09/03/17 [History] Levothyroxine [Synthroid] 75 mcg PO DAILY 09/03/17 [History] Trihexyphenidyl [Artane] 2 mg PO DAILY 09/03/17 [History] Aspirin [Lo-Dose Aspirin EC] 81 mg PO DAILY 03/29/18 [History] HYDROcodone/Acet 5/325 mg [Caputa 5-325 mg] 5 mg PO Q6HR PRN 7 Days #28 tablet 03/29/18 [Rx] [place] Carbonate 600 mg PO QPM 03/29/18 [History] Melatonin 6 mg PO HS 03/29/18 [History] OLANZapine [Zyprexa] 15 mg PO DAILY 03/29/18 [History] Propranolol HCl 40 mg PO DAILY 03/29/18 [History] Citalopram Hydrobromide [Celexa] 10 mg PO DAILY 10/18/18 [History] Divalproex (12 HR) [Depakote (12 HR)] 1,000 mg PO HS 10/18/18 [History] Divalproex (12 HR) [Depakote (12 HR)] 250 mg PO QAM 10/18/18 [History] Allergy/AdvReac Type Severity Reaction Status Date / Time quetiapine [From Seroquel] AdvReac unknown Verified 10/18/18 09:34 ROS unobtainable: due to mental status All Systems PM: A 10-system review of systems was performed and is negative for pertinent findings except as documented above in the HPI. - Constitutional Vitals: Temp Pulse Resp BP Pulse Ox 99.3 F 93 18 129/86 95 10/18/18 14:42 10/18/18 14:42 10/18/18 14:42 10/18/18 14:42 10/18/18 14:47 Exam: Gen: Vitals noted. No acute distress. Somnolent, generally not responsive to commands Eyes: anicteric sclerae, moist conjunctivae; no lid-lag; Pupils equal and reactive to light HENT: Atraumatic; oropharynx clear with moist mucous membranes and no mucosal ulcerations; normal hard and soft palate Neck: Trachea midline; supple, no thyromegaly or lymphadenopathy Cardiac: RRR, no murmur, +S1/S2 Pulmonary: CTA bilaterally, no wheezes, rales or rhonchi, equal chest expansion however overall poor inspiratory effort Abdomen: Distended, apparent hernia in central abdomen left of midline vs diastasis recti MSK: PROM intact, no joint swelling noted Extremities: Trace BLE edema, nontender calf, no cyanosis or clubbing Skin: Normal temperature, turgor and texture; no rash, ulcers or subcutaneous nodules Neuro: moves all extremities, no focal deficits. - Assessment and Plan (1) Sepsis Current Visit: Yes Status: Acute Assessment and plan: Sepsis secondary to community acquired pna Patient presented with fever 103, HR >103, RR 20. Lactic Acid 2.9 CXR demonstrated multifocal patchy airspace b/l consistent with atypical pna According to the patient, he has also had evidence of encephalopathy, although he does have elevated ammonia as well Received Blood cultures in ED, Flu Negative. Had does of Doxycycline, rocephin, azithromycin Got 2L NS, now vitals stable Plan Treat for CAP pending cultures Rocephin, Azithromycin Day [address] Chest with contrast Cardiac and O2 monitoring Titrate O2 PRN Repeat BMP, CBC Qualifiers: Sepsis type: sepsis due to unspecified organism Qualified Code(s): A41.9 - Sepsis, unspecified organism (2) Pneumonia Current Visit: Yes Status: Acute Assessment and plan: Pneumonia, likely CAP Plan as above Qualifiers: Pneumonia type: due to unspecified organism Laterality: bilateral Lung location: unspecified part of lung Qualified Code(s): J18.9 - Pneumonia, unspecified organism (3) Encephalopathy acute Current Visit: Yes Status: Acute Assessment and plan: Acute encephalopathy, likely multifactorial Patient has Sepsis secondary to PNA as well as hepatic encephalopathy Plan to treat both as above (4) Hyperammonemia Current Visit: Yes Status: Acute Assessment and plan: Ammonia 126, hepatic encephalopathy Likely cirrrhosis, secondary to longstanding untreated hep c Start lactulose BID, goal 3 BMs daily (5) DVT prophylaxis Current Visit: No Status: Acute Assessment and plan: SQ Heparin (6) Acute respiratory failure with hypoxia Current Visit: Yes Status: Acute Assessment and plan: Acute respiratory failure with hypoxia Titrate O2 prn continuous O2 monitoring - Time Spent With Patient Total time spent is greater than 50% in coordination of care (as documented) at patient's floor/unit and/or counseling patient: <Rafael Haro - Last Filed: 10/18/18 17:51> Date of Encounter: 10/18/18 Internal Medicine - H&P: HPI History of present illness: Mr. Garcia is a 48 year old male All Systems PM: A 10-system review of systems was performed and is negative for pertinent findings except as documented above in the HPI. - Constitutional Vitals: Temp Pulse Resp BP Pulse Ox 99.3 F 93 18 129/86 95 10/18/18 14:42 10/18/18 14:42 10/18/18 14:42 10/18/18 14:42 10/18/18 14:47 - Assessment and Plan (1) Pneumonia Current Visit: Yes Status: Acute Qualifiers: Pneumonia type: due to unspecified organism Laterality: bilateral Lung location: unspecified part of lung Qualified Code(s): J18.9 - Pneumonia, unspecified organism (2) Sepsis Current Visit: Yes Status: Acute Qualifiers: Sepsis type: sepsis due to unspecified organism Qualified Code(s): A41.9 - Sepsis, unspecified organism (3) DVT prophylaxis Current Visit: No Status: Acute (4) Encephalopathy acute Current Visit: Yes Status: Acute (5) Hyperammonemia Current Visit: Yes Status: Acute (6) Acute respiratory failure with hypoxia Current Visit: Yes Status: Acute - Time Spent With Patient Total time spent is greater than 50% in coordination of care (as documented) at patient's floor/unit and/or counseling patient: - Attending Attestation I examined this patient and my medical decision-making was reviewed with the Resident Physician. I agree with the documented findings, disposition and treatment plan as described except to the extent set forth below. Family history reviewed and non-contributory.
[2018-10-18] MEDS ORDERED: Naloxone 0.4 MG/ML INJ IVP PRN (16:14)
[2018-10-18] MEDS ORDERED: Isovue-370 500 ML BOTTLE IVP ONE ×2 (16:17→16:44)
[2018-10-18] MEDS ORDERED: *HR* HYDROcodone/Acet 5/325 mg TABLET PO PRN (16:51)
[2018-10-18] MEDS ORDERED: Lactulose Oral Soln 20 GM/30 ML UDC RC ONE (16:54)
[2018-10-18] MEDS: Lithium Carbonate 300 MG CAPSULE PO SCH (17:30)
[2018-10-18] MEDS ORDERED: Divalproex Sodium 125 MG CAPSULE PO SCH (18:00)
[2018-10-18 18:28] LABS: Troponin I < 0.03 ng/mL (< 0.04); Valproate 71 mcg/mL (50-100)
[2018-10-18 18:30] LABS: Amphetamine Screen,Urine Negative ng/mL (Cutoff=1000); Barbiturate Screen,Urine Negative ng/mL (Cutoff=200); Benzodiazepines Screen,Urine Negative ng/mL (Cutoff=200); Cannabinoid Screen,Urine Negative ng/mL (Cutoff = 50); Cocaine Screen,Urine Negative ng/mL (Cutoff= 300); Opiate Screen,Urine Positive ng/mL (Cutoff=300); Phencyclidine Screen,Urine Negative ng/mL (Cutoff=25)
--- NOTE | 2018-10-18 18:43 | Sepsis Event Note ---
Sepsis Reassessment Note - Evaluation Sepsis Screen: No Definite Risk Current Stage of Sepsis: sepsis Possible Source of Sepsis: pulmonary - Focused Exam Date of Encounter: 10/18/18 Time of Encounter: 16:10 Vital Signs: Vital Signs Temp Pulse Resp BP Pulse Ox 10/18/18 14:47 95 10/18/18 14:44 93 10/18/18 14:42 99.3 F 93 18 129/86 89 Respiratory Exam: Present: CTA bilaterally Cardiovascular Exam: Present: RRR Capillary Refill: < 2 seconds Peripheral Pulse Strength: 2+ slightly diminished Peripheral Pulse Location: Radial Skin Exam: normal turgor
[2018-10-18] MEDS ORDERED: Perflutren Lipid Microsphere 1.3 ML in 0.9 % Sodium Chloride 8.7 ML IVP ONE (20:10)
[2018-10-18] MEDS ORDERED: Divalproex (12 HR) 500 MG TABLET PO SCH (21:00)
[2018-10-18] MEDS: Lactulose Oral Soln 20 GM/30 ML UDC PO SCH (22:00)
[2018-10-18] MEDS: Gabapentin 300 MG CAPSULE PO SCH (22:01)
[2018-10-19 01:07] LABS: INR 1.2; Prothrombin Time 13.6 Seconds (9.4-12.1)
[2018-10-19 01:08] LABS: Alanine Aminotransferase 44 Units/L (7-52); Albumin 3.7 g/dL (3.5-5.7); Albumin/Globulin Ratio 1.2 (1.1-2.2); Alkaline Phosphatase 61 Units/L (34-104); Aspartate Amino Transferase 40 Units/L (13-39); BUN/Creatinine Ratio 9 (6-26); Bilirubin,Total 0.7 mg/dL (0.3-1.0); Blood Urea Nitrogen 6 mg/dL (6-20); Calcium 9.4 mg/dL (8.6-10.3); Carbon Dioxide 33 mEq/L (23-29); Chloride 103 mEq/L (98-107); Glucose 115 mg/dL (70-105); Magnesium 1.8 mg/dL (1.6-2.6); Osmolality,Calculated 293 (280-300); Potassium 3.3 mEq/L (3.5-5.1); Sodium 142 mEq/L (136-145); Total Protein 6.7 g/dL (6.4-8.9); eGFR For Non-African Americans > 60 (> 60)
[2018-10-19 01:21] LABS: Thyroid Stimulating Hormone 0.811 mcIU/mL (0.340-5.600)
[2018-10-19] MEDS: *HR* Heparin 5,000 UNIT/ML VIAL SQ SCH ×3 (05:43→21:20)
[2018-10-19] MEDS: Aspirin Enteric Coated 81 MG Tablet PO SCH (07:51)
[2018-10-19] MEDS: Gabapentin 300 MG CAPSULE PO SCH ×3 (07:51→21:20)
[2018-10-19] MEDS: cefTRIAXone 1,000 MG in Water for inj. (sterile) 20 ML 10 ML IVP SCH (07:51)
[2018-10-19] MEDS: Divalproex (12 HR) 250 MG TABLET PO SCH (07:52)
[2018-10-19] MEDS: Lactulose Oral Soln 20 GM/30 ML UDC PO SCH ×2 (07:52→21:22)
[2018-10-19] MEDS ORDERED: OLANZapine 5 MG TAB.RAPDIS PO SCH (09:00)
--- NOTE | 2018-10-19 10:57 | Internal Med Progress Note ---
<Toño Rojas Suyapa - Last Filed: 10/19/18 11:32> Hospitalist Progress Note - Encounter Date of Encounter: 10/19/18 Time of Encounter: 09:00 - Subjective Interval History: Patient did well overnight, had multiple bowel movements. He has no acute complaints this morning, nursing reports his mental status is back to baseline. - Exam Vitals: Temp Pulse Resp BP Pulse Ox 99.1 F 88 18 150/80 91 10/19/18 07:54 10/19/18 07:54 10/19/18 07:54 10/19/18 07:54 10/19/18 07:54 Exam: Gen: Vitals noted. No acute distress. Irritable Eyes: anicteric sclerae, moist conjunctivae; no lid-lag; Pupils equal and reactive to light HENT: Atraumatic; oropharynx clear with moist mucous membranes and no mucosal ulcerations; normal hard and soft palate Neck: Trachea midline; supple, no thyromegaly or lymphadenopathy Cardiac: RRR, no murmur, +S1/S2 Pulmonary: CTA bilaterally, no wheezes, rales or rhonchi, equal chest expansion Abdomen: Distended, apparent hernia in central abdomen left of midline vs diastasis recti MSK: PROM intact, no joint swelling noted Extremities: Trace BLE edema, nontender calf, no cyanosis or clubbing Skin: Normal temperature, turgor and texture; no rash, ulcers or subcutaneous nodules Neuro: moves all extremities, no focal deficits. - Assessment and Plan (1) Sepsis Current Visit: Yes Status: Resolved Assessment and Plan: Sepsis secondary to community acquired pna Patient presented with fever 103, HR >103, RR 20. Lactic Acid 2.9 CXR demonstrated multifocal patchy airspace b/l consistent with atypical pna Received Blood cultures in ED, Flu Negative. Chest CT demonstrated bilateral alveolar features concerning for pneumonia Admitted and started on Rocephin and azithromycin Plan Rocephin, Azithromycin Day 2 of 7 Cardiac and O2 monitoring Titrate O2 PRN Monitor for clinical improvement (2) Hyperammonemia Current Visit: Yes Status: Resolved Assessment and Plan: Ammonia 126 on admission, hepatic encephalopathy Likely cirrrhosis, secondary to longstanding untreated hep c Started lactulose BID, goal 3 BMs daily Ammonia 66 today, encephalopathy resolved Informed patient it is necessary to take his lactulose or his symptoms return Continue lactulose (3) Encephalopathy acute Current Visit: Yes Status: Resolved Assessment and Plan: Acute encephalopathy, likely multifactorial Patient had Sepsis secondary to PNA as well as hepatic encephalopathy Plan to treat both as above (4) Pneumonia Current Visit: Yes Status: Acute Assessment and Plan: Pneumonia, likely CAP Plan as above (5) DVT prophylaxis Current Visit: No Status: Acute Assessment and Plan: SQ Heparin (6) Acute respiratory failure with hypoxia Current Visit: Yes Status: Acute Assessment and Plan: Acute respiratory failure with hypoxia Titrate O2 prn continuous O2 monitoring - Time Spent with Patient Total time spent is greater than 50% in coordination of care (as documented) at patient's floor/unit and/or counseling patient: Internal Medicine: Result - Labs CBC & Chem 7: 10/19/18 00:32 Labs: BMP 10/19/18 00:32 Sodium 142 Potassium 3.3 L Chloride 103 Carbon Dioxide 33 H BUN 6 Creatinine 0.65 L Glucose 115 H Calcium 9.4 Cardiac Enzymes 10/18/18 10/19/18 Range/Units 17:26 00:32 Troponin I < 0.03 < 0.03 (< 0.04) ng/mL Liver Function 10/19/18 Range/Units 00:32 Total Bilirubin 0.7 (0.3-1.0) mg/dL AST 40 H (13-39) Units/L ALT 44 (7-52) Units/L Alkaline Phosphatase 61 (34-104) Units/L Albumin 3.7 (3.5-5.7) g/dL - ABG Interpretation ABG results: PT/INR, D-dimer PT 13.6 Seconds (9.4-12.1) H 10/19/18 00:32 - Impressions Impressions Chest CT 10/18/18 16:17 IMPRESSION: 1. Patchy alveolar densities bilateral lungs, right greater than left concerning for pneumonia. 2. Nonobstructing punctate calculus inferior pole left kidney. 3. Cholelithiasis without CT findings of acute cholecystitis. 4. Chronic T7 compression fracture. 5. Mild hepatic steatosis. 6. Midline ventral pelvic hernia contains multifocal bowel loops without obstruction evident. Many more bowel loops are involve the prior CT in May 2018. 7. Moderate volume fecal debris may reflect constipation. D/ / Dioni Preston / Dioni Preston Interpreting Provider: Dioni Preston Abdomen/Pelvis CT 10/18/18 16:44 IMPRESSION: 1. Patchy alveolar densities bilateral lungs, right greater than left concerning for pneumonia. 2. Nonobstructing punctate calculus inferior pole left kidney. 3. Cholelithiasis without CT findings of acute cholecystitis. 4. Chronic T7 compression fracture. 5. Mild hepatic steatosis. 6. Midline ventral pelvic hernia contains multifocal bowel loops without obstruction evident. Many more bowel loops are involve the prior CT in May 2018. 7. Moderate volume fecal debris may reflect constipation. D/ / Dioni Preston / Dioni Preston Interpreting Provider: Dioni Preston Echocardiogram 10/18/18 17:04 Impressions: LVEF 60-65%. LV wall thickness measurements could not be well obtained. Grossly, there is mild increased LVH. Indeterminate diastolic function. Normal right ventricular structure and function. Mild tricuspid regurgitation. Borderline pulmonary hypertension. Left Ventricular Wall Motion: Rest Echo Findings The mid inferior lateral and basal inferior lateral quintanilla were not visualized. All other wall segments showed normal motion. Findings: Study Quality * Technically adequate exam. ECG Findings * Normal sinus rhythm. Left Ventricle * LVEF 60-65%. * LV wall thickness measurements could not be well obtained. Grossly, there is mild increased LVH. * LV chamber size is normal. * Indeterminate diastolic function. Right Ventricle * Normal right ventricular structure and function. Left Atrium * Normal left atrial size. Right Atrium * Normal right atrial size. Aortic Valve * No aortic regurgitation. * Aortic valve not well visualized. * No aortic stenosis. Mitral Valve * No mitral regurgitation. * Normal mitral valve structure. * No mitral stenosis. Tricuspid Valve * Mild tricuspid regurgitation. * Normal tricuspid valve structure. Pulmonic Valve * Pulmonic valve is not well visualized. * No pulmonic stenosis. * No pulmonic regurgitation. Pulmonary Artery * Pulmonary artery not well visualized. Aorta * Normally sized aortic root. Pericardium * There is no pericardial effusion present. Interatrial Septum * No evidence of PFO by color Doppler. IVC * The IVC is not well evaluated. Consult Discharge Plan - Plan Referrals: Keira Golden APN [Primary Care Provider] - <Rafael Haro - Last Filed: 10/19/18 13:27> Hospitalist Progress Note - Encounter Date of Encounter: 10/19/18 - Exam Vitals: Temp Pulse Resp BP Pulse Ox 99.0 F 81 16 132/79 92 10/19/18 11:34 10/19/18 11:34 10/19/18 11:34 10/19/18 11:34 10/19/18 11:34 - Assessment and Plan (1) Pneumonia Current Visit: Yes Status: Acute (2) Sepsis Current Visit: Yes Status: Resolved (3) DVT prophylaxis Current Visit: No Status: Acute (4) Encephalopathy acute Current Visit: Yes Status: Resolved (5) Hyperammonemia Current Visit: Yes Status: Resolved (6) Acute respiratory failure with hypoxia Current Visit: Yes Status: Acute - Time Spent with Patient Total time spent is greater than 50% in coordination of care (as documented) at patient's floor/unit and/or counseling patient: Internal Medicine: Result - Labs CBC & Chem 7: 10/19/18 00:32 Labs: BMP 10/19/18 00:32 Sodium 142 Potassium 3.3 L Chloride 103 Carbon Dioxide 33 H BUN 6 Creatinine 0.65 L Glucose 115 H Calcium 9.4 Cardiac Enzymes 10/18/18 10/19/18 Range/Units 17:26 00:32 Troponin I < 0.03 < 0.03 (< 0.04) ng/mL Liver Function 10/19/18 Range/Units 00:32 Total Bilirubin 0.7 (0.3-1.0) mg/dL AST 40 H (13-39) Units/L ALT 44 (7-52) Units/L Alkaline Phosphatase 61 (34-104) Units/L Albumin 3.7 (3.5-5.7) g/dL - ABG Interpretation ABG results: PT/INR, D-dimer PT 13.6 Seconds (9.4-12.1) H 10/19/18 00:32 - Impressions Impressions Chest CT 10/18/18 16:17 IMPRESSION: 1. Patchy alveolar densities bilateral lungs, right greater than left concerning for pneumonia. 2. Nonobstructing punctate calculus inferior pole left kidney. 3. Cholelithiasis without CT findings of acute cholecystitis. 4. Chronic T7 compression fracture. 5. Mild hepatic steatosis. 6. Midline ventral pelvic hernia contains multifocal bowel loops without obstruction evident. Many more bowel loops are involve the prior CT in May 2018. 7. Moderate volume fecal debris may reflect constipation. D/ / Dioni Preston / Dioni Preston Interpreting Provider: Dioni Preston Abdomen/Pelvis CT 10/18/18 16:44 IMPRESSION: 1. Patchy alveolar densities bilateral lungs, right greater than left concerning for pneumonia. 2. Nonobstructing punctate calculus inferior pole left kidney. 3. Cholelithiasis without CT findings of acute cholecystitis. 4. Chronic T7 compression fracture. 5. Mild hepatic steatosis. 6. Midline ventral pelvic hernia contains multifocal bowel loops without obstruction evident. Many more bowel loops are involve the prior CT in May 2018. 7. Moderate volume fecal debris may reflect constipation. D/ / Dioni Preston / Dioni Preston Interpreting Provider: Dioni Preston Echocardiogram 10/18/18 17:04 Impressions: LVEF 60-65%. LV wall thickness measurements could not be well obtained. Grossly, there is mild increased LVH. Indeterminate diastolic function. Normal right ventricular structure and function. Mild tricuspid regurgitation. Borderline pulmonary hypertension. Left Ventricular Wall Motion: Rest Echo Findings The mid inferior lateral and basal inferior lateral quintanilla were not visualized. All other wall segments showed normal motion. Findings: Study Quality * Technically adequate exam. ECG Findings * Normal sinus rhythm. Left Ventricle * LVEF 60-65%. * LV wall thickness measurements could not be well obtained. Grossly, there is mild increased LVH. * LV chamber size is normal. * Indeterminate diastolic function. Right Ventricle * Normal right ventricular structure and function. Left Atrium * Normal left atrial size. Right Atrium * Normal right atrial size. Aortic Valve * No aortic regurgitation. * Aortic valve not well visualized. * No aortic stenosis. Mitral Valve * No mitral regurgitation. * Normal mitral valve structure. * No mitral stenosis. Tricuspid Valve * Mild tricuspid regurgitation. * Normal tricuspid valve structure. Pulmonic Valve * Pulmonic valve is not well visualized. * No pulmonic stenosis. * No pulmonic regurgitation. Pulmonary Artery * Pulmonary artery not well visualized. Aorta * Normally sized aortic root. Pericardium * There is no pericardial effusion present. Interatrial Septum * No evidence of PFO by color Doppler. IVC * The IVC is not well evaluated. - Attending Attestation I examined this patient and my medical decision-making was reviewed with the Resident Physician. I agree with the documented findings, disposition and t reatment plan as described except to the extent set forth below. Mental status significantly improved since yesterday. Vitals stable. Ammonia improved. Afebrile. Continue lactulose, rocephin/azithro. Will need outpatient GI follow-up on discharge. <Toño Rojas - Last Filed: 10/19/18 11:32> (1) Sepsis Qualifiers: Sepsis type: sepsis due to unspecified organism Qualified Code(s): A41.9 - Sepsis, unspecified organism (4) Pneumonia Qualifiers: Pneumonia type: due to unspecified organism Laterality: bilateral Lung location: unspecified part of lung Qualified Code(s): J18.9 - Pneumonia, unspecified organism <Rafael Haro - Last Filed: 10/19/18 13:27> (1) Pneumonia Qualifiers: Pneumonia type: due to unspecified organism Laterality: bilateral Lung location: unspecified part of lung Qualified Code(s): J18.9 - Pneumonia, unspecified organism (2) Sepsis Qualifiers: Sepsis type: sepsis due to unspecified organism Qualified Code(s): A41.9 - Sepsis, unspecified organism
[2018-10-19] MEDS: Azithromycin 500 MG in D5% in Water 250 ML IVPB SCH (11:31)
[2018-10-19] MEDS: *HR* HYDROcodone/Acet 5/325 mg TABLET PO PRN ×2 (16:50→23:33)
[2018-10-19] MEDS: Lithium Carbonate 300 MG CAPSULE PO SCH (16:50)
[2018-10-19] MEDS ORDERED: Divalproex (12 HR) 250 MG TABLET PO SCH (21:00)
[2018-10-19] MEDS ORDERED: Divalproex (12 HR) 500 MG TABLET PO SCH (21:00)
[2018-10-19] MEDS ORDERED: Lithium Carbonate 300 MG CAPSULE PO SCH (21:00)
[2018-10-19] MEDS ORDERED: Melatonin 3 MG TABLET PO SCH (21:00)
[2018-10-19] MEDS ORDERED: Gabapentin 300 MG CAPSULE PO SCH (21:00)
[2018-10-19] MEDS: Baclofen 10 MG TABLET PO SCH (21:22)
[2018-10-20] MEDS: *HR* Heparin 5,000 UNIT/ML VIAL SQ SCH (05:08)
[2018-10-20] MEDS: *HR* HYDROcodone/Acet 5/325 mg TABLET PO PRN ×2 (05:39→12:10)
[2018-10-20 06:54] LABS: Basophils % 0.2 %; Eosinophils # 0.4 K/mcL (0.0-0.6); Eosinophils % 4.4 %; Hematocrit 38.4 % (37.5-50.1); Hemoglobin 12.4 g/dL (12.9-16.9); Immature Granulocytes % 0.4 % (0-4); Lymphocytes # 2.7 K/mcL (0.6-4.6); Lymphocytes % 32.1 %; Mean Corpuscular HGB Conc 32.3 g/dL (31.6-35.5); Mean Corpuscular Hemoglobin 29.7 pg (28.0-33.3); Mean Corpuscular Volume 92.1 fL (83.0-100.0); Mean Platelet Volume 11.6 fL (9.4-12.4); Monocytes # 0.8 K/mcL (0.0-1.3); Neutrophils # 4.5 K/mcL (1.6-8.9); Platelet Count 126 K/mcL (140-400); Red Blood Count 4.17 M/mcL (4.19-5.50); Segmented Neutrophils % 53.9 %
[2018-10-20] MEDS ORDERED: Potassium Chloride 20 MEQ, Lidocaine 1% 2 ML in D5% in Water 250 ML IVPB ONE (07:27)
[2018-10-20] MEDS: Gabapentin 300 MG CAPSULE PO SCH (08:43)
[2018-10-20] MEDS: Baclofen 10 MG TABLET PO SCH (08:44)
[2018-10-20] MEDS: Lactulose Oral Soln 20 GM/30 ML UDC PO SCH (08:44)
[2018-10-20] MEDS: Aspirin Enteric Coated 81 MG Tablet PO SCH (08:44)
[2018-10-20] MEDS: cefTRIAXone 1,000 MG in Water for inj. (sterile) 20 ML 10 ML IVP SCH (08:44)
[2018-10-20] MEDS: Divalproex (12 HR) 250 MG TABLET PO SCH (08:44)
[2018-10-20] MEDS ORDERED: Furosemide 20 MG TABLET PO SCH (09:00)
[2018-10-20] MEDS ORDERED: HALOPERIDOL 1 MG PO SCH (09:00)
--- NOTE | 2018-10-20 10:12 | Discharge Summary ---
<Toño Rojas - Last Filed: 10/20/18 11:32> - NOTES TO OUTPATIENT PROVIDER Notes to Outpatient Provider: Mr. Garcia was admitted and treated for sepsis secondary to multifocal community-acquired pneumonia and encephalopathy secondary to hyperammonemia. He was admitted and treated with Rocephin and azithromycin, lactulose, supportive care. Sepsis quickly resolved, clinical condition quickly improved, encephalopathy resolved, and patient was considered stable for discharge. He received 3 days of Rocephin and azithromycin in the hospital, will be discharged with 4 days oral doxycycline to complete 7 day course. He will also be discharged with lactulose. We will order repeat ammonia and potassium in 3 days. GI follow-up scheduled encouraged. Orders not resulted at time of discharge: Pending orders 10/20/18 09:54 Ammonia Routine Date of Encounter: 10/20/18 Time of Encounter: 09:00 - Discharge Diagnosis (1) Sepsis Priority: Primary Status: Resolved Assessment and Plan: Sepsis secondary to community acquired pna Patient presented with fever 103, HR >103, RR 20. Lactic Acid 2.9 CXR demonstrated multifocal patchy airspace b/l consistent with atypical pna Chest CT demonstrated bilateral alveolar features concerning for pneumonia Admitted and started on Rocephin and azithromycin Plan Rocephin, Azithromycin Day 3 of 7 Clinical condition improved Discharge on 4 more days oral doxycycline Qualifiers: Sepsis type: sepsis due to unspecified organism Qualified Code(s): A41.9 - Sepsis, unspecified organism (2) Hyperammonemia Priority: Primary Status: Chronic Assessment and Plan: Ammonia 126 on admission, hepatic encephalopathy Likely cirrrhosis, secondary to longstanding untreated hep c Started lactulose BID, goal 3 BMs daily Encephalopathy resolved, ammonia chronically elevated secondary to liver damage, discharge with lactulose (3) Encephalopathy acute Priority: Primary Status: Resolved Assessment and Plan: Acute encephalopathy, likely multifactorial Patient had Sepsis secondary to PNA as well as hepatic encephalopathy Resolved (4) Pneumonia Priority: Primary Status: Acute Assessment and Plan: Pneumonia, likely CAP Plan as above Qualifiers: Pneumonia type: due to unspecified organism Laterality: bilateral Lung location: unspecified part of lung Qualified Code(s): J18.9 - Pneumonia, unspecified organism (5) Acute respiratory failure with hypoxia Priority: Primary Status: Resolved Assessment and Plan: Acute respiratory failure with hypoxia secondary to pneumonia, resolved Hospital course: Mr. Garcia is a 48 year old male with history of hep C, bipolar depression, TBI, asthma who presented to [facility] ED accompanied by sister and POA for complaint of altered mental status. Chest x-ray in the emergency department demonstrated bilateral diffuse infiltrates consistent with atypical pneumonia. Lactic acid and ammonia were also elevated, he also met SIRS criteria. He was admitted and treated for acute hypoxic respiratory failure and sepsis secondary to community-acquired pneumonia, also acute encephalopathy secondary to hyperammonemia. He was treated with 3 days of Rocephin and azithromycin, lactulose. Sepsis quickly resolved, clinical condition quickly improved, encephalopathy resolved. He was considered stable for discharge on oral antibiotics and lactulose, with outpatient follow-up. Discharge discussed with: patient - Time Spent with Patient Total time spent providing and/or coordinating discharge services: - Discharge Medications Prescriptions: New Doxycycline 100 mg PO DAILY 4 Days #4 capsule Lactulose 20 gm PO BID 30 Days #60 udc Continue Levothyroxine [Synthroid] 75 mcg PO QAM Doxepin HCl 100 mg PO HS Cholecalciferol (Vitamin D3) [Vitamin D3] 50,000 unit PO QMONTH Melatonin 6 mg PO HS Propranolol HCl 40 mg PO HS Aspirin [Lo-Dose Aspirin EC] 81 mg PO QAM Divalproex (12 HR) [Depakote (12 HR)] 250 mg PO HS Divalproex (12 HR) [Depakote (12 HR)] 1,000 mg PO HS Baclofen [Lioresal] 10 mg PO TID Citalopram Hydrobromide [Citalopram HBr] 10 mg PO QAM Gabapentin [Neurontin] 300 mg PO TID Haloperidol 1 mg PO DAILY HYDROcodone/Acet 5/325 mg [[place] 5-325 mg] 1 tab PO Q6H PRN PRN Reason: Pain Divide Carbonate 600 mg PO HS Potassium Chloride [Klor-Con 10] 10 meq PO QAM OLANZapine [Zyprexa] 10 mg PO HS Furosemide [Lasix] 20 mg PO DAILY Home Medications: Cholecalciferol (Vitamin D3) [Vitamin D3] 50,000 unit PO QMONTH 09/03/17 [History] Doxepin HCl 100 mg PO HS 09/03/17 [History] Levothyroxine [Synthroid] 75 mcg PO QAM 09/03/17 [History] Aspirin [Lo-Dose Aspirin EC] 81 mg PO QAM 03/29/18 [History] Melatonin 6 mg PO HS 03/29/18 [History] Propranolol HCl 40 mg PO HS 03/29/18 [History] Divalproex (12 HR) [Depakote (12 HR)] 1,000 mg PO HS 10/18/18 [History] Divalproex (12 HR) [Depakote (12 HR)] 250 mg PO HS 10/18/18 [History] Baclofen [Lioresal] 10 mg PO TID 10/19/18 [History] Citalopram Hydrobromide [Citalopram HBr] 10 mg PO QAM 10/19/18 [History] Furosemide [Lasix] 20 mg PO DAILY 10/19/18 [History] Gabapentin [Neurontin] 300 mg PO TID 10/19/18 [History] HYDROcodone/Acet 5/325 mg [[place] 5-325 mg] 1 tab PO Q6H PRN 10/19/18 [History] Haloperidol 1 mg PO DAILY 10/19/18 [History] Divide Carbonate 600 mg PO HS 10/19/18 [History] OLANZapine [Zyprexa] 10 mg PO HS 10/19/18 [History] Potassium Chloride [Klor-Con 10] 10 meq PO QAM 10/19/18 [History] Doxycycline 100 mg PO DAILY 4 Days #4 capsule 10/20/18 [Rx] Lactulose 20 gm PO BID 30 Days #60 udc 10/20/18 [Rx] Allergies/Adverse Reactions: Allergy/AdvReac Type Severity Reaction Status Date / Time quetiapine [From Seroquel] AdvReac unknown Verified 10/18/18 09:34 Date of admission: 10/18/18 14:28 Primary care physician: Keira Golden APN Discharging clinician: Toño Rojas Anticipated date of discharge: 10/20/18 - Constitutional Vitals: Temp Pulse Resp BP Pulse Ox 98.7 F 76 18 155/89 100 10/20/18 07:20 10/20/18 07:20 10/20/18 07:20 10/20/18 07:20 10/20/18 08:59 Exam: Gen: Vitals noted. No acute distress. Alert and oriented 3 Eyes: anicteric sclerae, moist conjunctivae; no lid-lag; Pupils equal and reactive to light HENT: Atraumatic; oropharynx clear with moist mucous membranes and no mucosal ulcerations; normal hard and soft palate Neck: Trachea midline; supple, no thyromegaly or lymphadenopathy Cardiac: RRR, no murmur, +S1/S2 Pulmonary: CTA bilaterally, no wheezes, rales or rhonchi, equal chest expansion Abdomen: Distended, apparent hernia in central abdomen left of midline vs diastasis recti MSK: PROM intact, no joint swelling noted Extremities: Trace BLE edema, nontender calf, no cyanosis or clubbing Skin: Normal temperature, turgor and texture; no rash, ulcers or subcutaneous nodules Neuro: moves all extremities, no focal deficits. - Patient Status Disposition: Home, Self-Care Condition: Fair Overall status at discharge: patient is back to baseline - Ambulatory Orders Ambulatory Orders: Ammonia [CHEM] Time Frame: 3 Days, Facility: [facility], Location: Lab Potassium [CHEM] Time Frame: 3 Days, Facility: [facility], Location: Lab - Discharge Instructions Instructions: Acute Respiratory Distress Syndrome (DC), Hepatic Encephalopathy (DC), Chronic Hypertension (DC), Pneumonia (DC) Follow Up With: Keira Golden APN [Primary Care Provider] - (Office closed today. Please call tomorrow, 10/21/18 to set up a follow-up appointment. ) Loree Gee [employer] [Advanced Practice Nurse] - (Web request sent for first available appoitment. They will call you to set up appointment time. ) - Diet and Activity Activity: resume usual activities as tolerated Diet: low fat, low cholesterol, low salt diet <Rafael Haro - Last Filed: 10/20/18 13:04> Date of Encounter: 10/20/18 - Discharge Diagnosis (1) Pneumonia Status: Acute Qualifiers: Pneumonia type: due to unspecified organism Laterality: bilateral Lung location: unspecified part of lung Qualified Code(s): J18.9 - Pneumonia, unspecified organism (2) Sepsis Status: Resolved Qualifiers: Sepsis type: sepsis due to unspecified organism Qualified Code(s): A41.9 - Sepsis, unspecified organism (3) Encephalopathy acute Status: Resolved (4) Hyperammonemia Status: Chronic (5) Acute respiratory failure with hypoxia Status: Resolved Hospital course: Mr. Garcia is a 48 year old male - Time Spent with Patient Total time spent providing and/or coordinating discharge services: Date of admission: 10/18/18 14:28 Primary care physician: Keira Golden APN - Constitutional Vitals: Temp Pulse Resp BP Pulse Ox 98.8 F 78 18 147/82 95 10/20/18 11:36 10/20/18 11:36 10/20/18 11:36 10/20/18 11:36 10/20/18 11:36 - Attending Attestation I examined this patient and my medical decision-making was reviewed with the Resident Physician. I agree with the documented findings, disposition and treatment plan as described except to the extent set forth below.
[2018-10-20] MEDS: Azithromycin 500 MG in D5% in Water 250 ML IVPB SCH (11:09)
[2018-10-20 11:43] VITALS: BP 147/82
[2018-10-20] MEDS ORDERED: OLANZapine 10 MG TAB.RAPDIS PO SCH (21:00)
== END 2018-10-20 13:35 | disposition home or self-care (01) | DRG 720 ==
LOC: SUATTDRO 14:28 → 2ANU 14:28
PROVIDERS: ADMIT Internal Medicine; ATTEND Student in an Organized Health Care Education/Training Program